=== PATIENT | female | born 1955 | race Caucasian/White ===

== ENCOUNTER 2020-03-04 09:25 | Outpatient (REF) | payer OTHER, SELFPAY ==
--- NOTE | 2020-03-04 09:26 | CT_ITS ---
EXAMINATION: CT CHEST SCREENING CLINICAL INFORMATION: Personal history of nicotine dependence. COMPARISON: None TECHNIQUE: Multidetector volumetric CT imaging of the chest is performed without contrast using low dose technique. Additional 2D coronal and sagittal reformatted images and axial 3D maximum intensity projection (MIP) images are generated on the CT workstation. This CT examination was performed using dose optimization techniques as appropriate, variously including the following: *Automated exposure control *Adjustment of mA and/or kV according to patient size (this includes techniques or standardized protocols for targeted exams where dose is matched to indication/reason for exam; i.e. extremities or head) *Use of iterative reconstruction technique DLP: 229 mGy-cm FINDINGS: LUNGS: There is loss of right lung volume from previous right upper lobectomy. There is right apical pleural thickening and scarring. Minimal left apical pleural thickening and scarring is seen. There is a left upper lobe 6 mm nodule or overlapping vascular structures image 59/6, stable to previous study. 4 mm nodule left lung apex posteriorly image 59/6 is stable. 5 mm nodule with medially extending linear stranding likely parenchymal thickening axial image 77/6, stable. 2 mm nodule left upper lobe anterior laterally image 100/6, stable. There are punctate calcified nodules in the left lung better visualized on 8 millimeters thick axial images and appears stable. There is a right lower lobe patchy consolidation which appears slightly more prominent than the previous study. There are no new nodules seen. MEDIASTINUM: The thyroid lobes are symmetrical and normal. The central trachea and the bronchi are widely patent. Heart size and the great vessels are normal caliber. No abnormal-sized mediastinal lymph nodes seen. There is no pericardial effusion. PLEURA: There is bilateral apical pleural thickening. No pleural effusion or calcification seen. AXILLA: No lymphadenopathy. UPPER ABDOMEN: Visualized liver, spleen, pancreas and bilateral adrenal glands are unremarkable. No radiopaque gallstone seen. A few scattered descending colon diverticula are visualized. OSSEOUS STRUCTURES: No lytic or sclerotic process seen. CT/CT lung screening IMPRESSION: Stable right postoperative changes following lobectomy. Slightly more prominent right lower lobe patchy consolidation in density and minimal increase in size. Multiple left lung nodules are stable as well. There are no new nodules. No abnormal mediastinal hilar lymph nodes. Lung RADS category 2 benign. RECOMMENDATION: Low-dose annual chest CT followup.
== END 2020-03-04 09:26 | disposition home or self-care (01) ==
LOC: HO.CT 09:25
PROVIDERS: PCP Physician Assistant; Visit Provider Physician Assistant Medical
DX: Z12.2 Encounter for screening for malignant neoplasm of respiratory organs (principal); Z87.891 Personal history of nicotine dependence
CPT/HCPCS: 71250

== ENCOUNTER → 2020-03-31 08:55 | Outpatient (BNVA) | payer OTHER, SELFPAY | PROVIDERS: PCP Physician Assistant; Visit Provider Hospitalist | DX: J44.9 Chronic obstructive pulmonary disease, unspecified (principal); J18.9 Pneumonia, unspecified organism; Z79.899 Other long term (current) drug therapy | CPT/HCPCS: 99212 ==

== ENCOUNTER 2020-04-10 08:07 | Outpatient (REF) | payer OTHER, SELFPAY ==
--- NOTE | 2020-04-10 17:39 | PFT_ITS ---
INDICATION: COPD. SPIROMETRY: The FEV1 to FVC of 62% with an FEV1 of 1.59 L which is 59% predicted and an FVC of 2.56 L which is 74% predicted. No significant response to bronchodilators noted. Maximum voluntary ventilation 78% predicted. LUNG VOLUMES: Total lung capacity 70% predicted. DIFFUSION CAPACITY: DLCO of 49% predicted. COMPARISONS: None. INTERPRETATION: There is an obstructive ventilatory defect consistent moderate COPD. No significant response to bronchodilators noted. Mild decrease in maximum voluntary ventilation secondary to likely deconditioning. The patient also has mild restrictive ventilatory defect likely from her surgeries in her parenchymal lung disease. In addition to that she has a moderate diffusion impairment. Clinical correlation warranted. MD PAULINE Lockett/HENRY / [id number]
== END 2020-04-10 08:08 | disposition home or self-care (01) ==
LOC: HO.RESP 08:07
PROVIDERS: PCP Physician Assistant; Visit Provider Hospitalist
DX: J44.9 Chronic obstructive pulmonary disease, unspecified (principal); J18.9 Pneumonia, unspecified organism
CPT/HCPCS: 94060; 94727; 94729

== ENCOUNTER 2020-04-16 10:25 | Day surgery (SDC) | payer OTHER, SELFPAY ==
[2020-04-10 14:02] VITALS: BMI 29.7
--- NOTE | 2020-04-15 10:46 | HO.ANESPROP2 ---
Documented by User: Bridgett Jenna 04/15/20 10:47 HPI - Anesthesia Eval Consult details Narrative: 64yo F for Bronchoscopy Fiberoptic s/p RUL resection PMFSH Past Medical History Medical History Cancer COPD (chronic obstructive pulmonary disease) Hx of radiation therapy Pneumonia Surgical History Surgical History History of lung surgery Social History Social History Smoking Status: Never smoker Advance Directives: Yes (unknown) Advance Directives Information Provided: No Meds Allergies Allergy/AdvReac Type Severity Reaction Status Date / Time No Known Allergies Allergy Verified 04/16/20 10:55 Home Medications Medication Instructions Recorded Confirmed Type albuterol sulfate 90 mcg/actuation 2 puff INHALATION Q4-6H PRN 03/31/20 04/16/20 History aerosol inhaler budesonide-formoterol HFA 160 2 puff INHALATION Q12H 03/31/20 04/16/20 History mcg-4.5 mcg/actuation aerosol inhaler escitalopram oxalate 5 mg tablet 5 mg PO DAILY 03/31/20 04/16/20 History ipratropium 0.5 mg-albuterol 3 mg 3 ml INHALATION Q6-8H PRN 03/31/20 04/16/20 History (2.5 mg base)/3 mL nebulization soln propranolol 20 mg tablet 20 mg PO BID 03/31/20 04/16/20 History quetiapine 50 mg tablet 50 mg PO BEDTIME 03/31/20 04/16/20 History tiotropium bromide 2.5 2 puff INHALATION DAILY 03/31/20 04/16/20 History mcg/actuation mist for inhalation eukifaodyry-kskekegpe-ntbnjsks 1 puff INHALATION DAILY 04/16/20 04/16/20 History [Trelegy Elliplory] Exam Exam Date and Time: April 15, 2020 1046 Height,Weight and Vital Signs: Height 5 ft 6 in Weight 83.461 kg Assessment and Plan Assessment Anesthesia Assessment: Chart Reviewed Documented by User: Delvin Ch MD 04/16/20 12:46 PMF Past Medical History Medical History Cancer COPD (chronic obstructive pulmonary disease) Hx of radiation therapy Pneumonia Surgical History Surgical History History of lung surgery Social History Social History Smoking Status: Never smoker Advance Directives: Yes (unknown) Advance Directives Information Provided: No Meds Allergies Allergy/AdvReac Type Severity Reaction Status Date / Time No Known Allergies Allergy Verified 04/16/20 10:55 Home Medications Medication Instructions Recorded Confirmed Type albuterol sulfate 90 mcg/actuation 2 puff INHALATION Q4-6H PRN 03/31/20 04/16/20 History aerosol inhaler budesonide-formoterol HFA 160 2 puff INHALATION Q12H 03/31/20 04/16/20 History mcg-4.5 mcg/actuation aerosol inhaler escitalopram oxalate 5 mg tablet 5 mg PO DAILY 03/31/20 04/16/20 History ipratropium 0.5 mg-albuterol 3 mg 3 ml INHALATION Q6-8H PRN 03/31/20 04/16/20 History (2.5 mg base)/3 mL nebulization soln propranolol 20 mg tablet 20 mg PO BID 03/31/20 04/16/20 History quetiapine 50 mg tablet 50 mg PO BEDTIME 03/31/20 04/16/20 History tiotropium bromide 2.5 2 puff INHALATION DAILY 03/31/20 04/16/20 History mcg/actuation mist for inhalation ojuhjurfugr-famiyoasg-ckwiippd 1 puff INHALATION DAILY 04/16/20 04/16/20 History [Trelegy Ellipta] Exam Airway Mallampati Class: II TM Dist: >3cm Neck ROM: Full Denture: Upper Assessment and Plan Assessment Anesthesia Assessment: Anesthesia Plan Discussed and Chart Reviewed Final Anesthetic Review NPO: Yes ASA Class: III Final Preanesthetic Review: No Changes in Pt Med Stat, Meds/Allgs Chart Reviewed and Consent Obtained/Reviewed Patient Risk: Intermediate Procedure Risk: Low Anesthetic Plan Anesthetic Plan: GA Disposition: Standard PACU
[2020-04-16 11:01] VITALS: BP 127/72; PULSE 68; RESP 18; TEMP 36.2; O2SAT 99
[2020-04-16] MEDS: Lactated Ringers 1,000 ML 100 ML IVCONT (11:01)
--- NOTE | 2020-04-16 11:23 | MHC.SHP ---
Pre-Procedural Eval Section A The patient is an INPATIENT: No Changes since office visit: Yes Cold of Flu in the past 2 weeks The History & Physical has been completed within 30 days and I have reviewed it.: Yes Section B Chief Complaint: pneumonitis Allergies: Allergies Allergy/AdvReac Type Severity Reaction Status Date / Time No Known Allergies Allergy Verified 04/16/20 10:55 Plan Patient has been examined and remains a candidate for the planned procedure
--- NOTE | 2020-04-16 11:55 | PC.NURSE ---
CALLED RESPIRATORY AT 1125. TROUBLE GETTING THROUGH EXTENSION 5815. EXT 5812 USED. RESPIRATORY NOT UP TO GIVE TREATMENT UNTIL 1152 AFTER A 2ND CALL TO 5812. MD AND ANESTHESIA MADE AWARE.
--- NOTE | 2020-04-16 12:38 | XR_ITS ---
EXAMINATION: XR CHEST CLINICAL INFORMATION: Bronchoscopy with right-sided biopsy COMPARISON: Previous chest CT most recent February 2020 TECHNIQUE: Frontal view of the chest was obtained. FINDINGS: There are postsurgical changes to the right hemithorax. There are surgical clips seen in the right suprahilar region. There is volume loss with shift of the central mediastinal structures to the right and elevation of the right hemidiaphragm. There is right apical pleural thickening or small pleural effusion. There is tenting of the right hemidiaphragm. The left lung is clear. There is no left pleural effusion. There is no pneumothorax. The cardiac and mediastinal contours are stable. No pneumomediastinum is seen. There are postoperative changes to the right ribs. There is curvature of the thoracic spine to the right. XR/XR chest 1V IMPRESSION: Stable postsurgical changes to the right hemithorax. No evidence for acute disease in the chest.
--- NOTE | 2020-04-16 12:39 | PM.OP ---
Brief Operative Note Date of Service: 04/16/20 Surgeon: Charly Graff MD Anesthesia: GETA Estimated blood loss (mL): 0 Pathology: other (RLL transbronchial biopsies, RLL brusing, RLL washings, CLAUDIA endobronchial biopsies) Condition: stable Disposition: same day
[2020-04-16 12:46] VITALS: BP 119/70; PULSE 73; RESP 20; O2SAT 99
[2020-04-16 13:01] VITALS: BP 115/81; PULSE 78; RESP 20; O2SAT 99
[2020-04-16 13:16] VITALS: BP 124/70; PULSE 71; RESP 18; O2SAT 97
[2020-04-16 13:31] VITALS: BP 125/69; PULSE 72; RESP 18; O2SAT 96
[2020-04-16 13:46] VITALS: BP 117/71; PULSE 67; RESP 18; O2SAT 97
--- NOTE | 2020-04-16 14:18 | HO.POSTANES ---
Post Anesthesia Evaluation Post Anesthesia Evaluation Vital Signs: Vital Signs Temp Pulse Resp BP Pulse Ox 04/16/20 13:46 97.1 F 67 18 117/71 97 04/16/20 13:31 72 18 125/69 96 04/16/20 13:16 71 18 124/70 97 04/16/20 13:01 78 20 115/81 99 04/16/20 12:46 73 20 119/70 99 04/16/20 11:01 97.1 F 68 18 127/72 99 Anesthesia: General (tiva) Mental Status: Awake Pain Control: Satisfactory Nausea/Vomiting: None Hydration: Adequate Anesthesia-Related Issues: No Anes. Related Issues
--- NOTE | 2020-04-16 14:52 | PC.NURSE ---
RESP REG NO ORAL STG NO COUGH, NO SOB. TAKING PO WITHOUT ISSUES
--- NOTE | 2020-04-16 21:34 | OP_ITS ---
SURGEON: Charly Graff MD PREOPERATIVE DIAGNOSIS: POSTOPERATIVE DIAGNOSIS: PROCEDURE PERFORMED: ESTIMATED BLOOD LOSS: COMPLICATIONS: None. Chest x-ray pending post biopsies. ANESTHESIA: General endotracheal anesthesia. ASSISTANTS: SPECIMENS: PREOPERATIVE DIAGNOSES: Pneumonia and abnormal right lower lobe airspace disease. POSTOPERATIVE DIAGNOSES: Pneumonia and abnormal right lower lobe airspace disease, in addition to bronchitis and also visible staple line in the right upper lobe stump. DESCRIPTION OF PROCEDURE: After the patient was adequately sedated and intubated, the flexible digital bronchoscope was inserted over the ET tube to the level of the main luisa. The main luisa was sharp, did have significant thick sticky mucoid secretions with some pigmentation. The pigmentation was made up of darker specks within the mucoid secretions. They were throughout. No evidence of any endobronchial lesions or masses, although in the left upper lobe, there was an area of what appeared to be slight discoloration or hypopigmentation of the mucosa. Otherwise, the patient did also have [place], which were grossly visible in the stump on the right upper lobe from her previous surgeries. Multiple [place] appreciated. No definitive fistula that I could visualize with the bronchoscopic inspection. The bronchoscope was navigated to the right lower lobe and a cytologic brush was introduced into the right lower lobe and sent to the appropriate location. Bronchial washings were also collected from the right lower lobe. Using biopsies forceps, the transbronchial biopsies were collected from the right lower lobe and 3 specimens collected and sent in formalin to pathology. Also, 2 attempts of the biopsy of the left upper lobe slightly abnormal endobronchial area likely due to either scarring or chronic inflammation, but attempts of endobronchial biopsy was done, difficult in the area because of the angle and the location in the airway. No significant bleeding. Iced saline was used with good hemostasis. Epinephrine was not administered, it was not necessary. The patient tolerated the procedure well. The total endoscopic time approximately 15 minutes. The patient tolerated the procedure well. Vital signs were stable. She was able to be extubated. INTERPRETATION: 1. Transbronchial biopsies of right lower lobe. 2. Cytologic brush into the right lower lobe. 3. Washings from the right lower lobe. 4. Endobronchial biopsies from the left upper lobe. Charly Graff MD MR/MODL / [id number]
== END 2020-04-16 13:20 | disposition home or self-care (01) ==
PROVIDERS: PCP Physician Assistant; Visit Provider Hospitalist
PROC: 0BJ08ZZ Inspection of Tracheobronchial Tree, Via Natural or Artificial Opening Endoscopic (ICD-10-PCS; CPT 31622; principal; 2020-04-16 12:00)
DX: J18.9 Pneumonia, unspecified organism (principal); J93.9 Pneumothorax, unspecified; J44.9 Chronic obstructive pulmonary disease, unspecified; J98.4 Other disorders of lung; R06.00 Dyspnea, unspecified; Z90.2 Acquired absence of lung [part of]; Z85.3 Personal history of malignant neoplasm of breast; Z92.3 Personal history of irradiation; Z79.51 Long term (current) use of inhaled steroids; Z79.899 Other long term (current) drug therapy
CPT/HCPCS: 31628; 31625; 31623; 71045; 87071; 87077; 87102; 87116; 87186; 87205; 88112; 88300; 88305; J0171; J2405; J3010

== ENCOUNTER → 2020-05-06 13:11 | Outpatient (BNVA) | payer OTHER, SELFPAY | PROVIDERS: PCP Physician Assistant; Visit Provider Hospitalist | DX: J44.9 Chronic obstructive pulmonary disease, unspecified (principal); Z87.01 Personal history of pneumonia (recurrent); Z90.2 Acquired absence of lung [part of] | CPT/HCPCS: 99212 ==

== ENCOUNTER → 2020-09-03 08:52 | Outpatient (BNVA) | payer OTHER, SELFPAY | PROVIDERS: PCP Physician Assistant; Visit Provider Hospitalist | DX: J41.8 Mixed simple and mucopurulent chronic bronchitis (principal); J15.1 Pneumonia due to Pseudomonas; J47.0 Bronchiectasis with acute lower respiratory infection; Z90.2 Acquired absence of lung [part of] | CPT/HCPCS: 99212 ==

== ENCOUNTER → 2020-10-15 08:35 | Outpatient (BNVA) | payer OTHER, SELFPAY | PROVIDERS: PCP Physician Assistant; Visit Provider Hospitalist | DX: J44.1 Chronic obstructive pulmonary disease with (acute) exacerbation (principal); J47.0 Bronchiectasis with acute lower respiratory infection; Z90.2 Acquired absence of lung [part of] | CPT/HCPCS: 99212 ==

== ENCOUNTER → 2021-01-27 08:54 | Outpatient (BNVA) | payer OTHER, SELFPAY | PROVIDERS: PCP Physician Assistant; Visit Provider Hospitalist | DX: J47.0 Bronchiectasis with acute lower respiratory infection (principal); J44.1 Chronic obstructive pulmonary disease with (acute) exacerbation; Z90.2 Acquired absence of lung [part of] | CPT/HCPCS: 99212 ==

== ENCOUNTER → 2021-07-28 08:39 | Outpatient (BNVA) | payer OTHER, SELFPAY | PROVIDERS: PCP Physician Assistant; Visit Provider Hospitalist | DX: J47.0 Bronchiectasis with acute lower respiratory infection (principal); Z90.2 Acquired absence of lung [part of] | CPT/HCPCS: 99212 ==

== ENCOUNTER → 2022-03-26 08:51 | Outpatient (BNVA) | payer OTHER, SELFPAY | PROVIDERS: PCP Physician Assistant; Visit Provider Hospitalist | DX: J44.1 Chronic obstructive pulmonary disease with (acute) exacerbation (principal); J47.0 Bronchiectasis with acute lower respiratory infection; Z90.2 Acquired absence of lung [part of] | CPT/HCPCS: 99212 ==

== ENCOUNTER 2022-04-22 10:13 | Outpatient (REF) | payer OTHER, SELFPAY ==
--- NOTE | ~2022-04-22 | CT_ITS ---
EXAMINATION: CT CHEST SCREENING CLINICAL INFORMATION: Personal history of nicotine dependence. COMPARISON: CT chest 03/04/2020. TECHNIQUE: Multidetector volumetric CT imaging of the chest is performed without contrast using low-dose technique. Additional 2D coronal and sagittal reformatted images and axial 3D maximum intensity projection (MIP) images are generated on the CT workstation. This CT examination was performed using dose optimization techniques as appropriate, variously including the following: *Automated exposure control *Adjustment of mA and/or kV according to patient size (this includes techniques or standardized protocols for targeted exams where dose is matched to indication/reason for exam; i.e. extremities or head) *Use of iterative reconstruction technique DLP: 62 mGy-cm FINDINGS: LUNGS: There is loss of right lung volume from right upper lobectomy. There is right apical pleural thickening and parenchymal scarring. Mild left apical pleural thickening and parenchymal scarring are noted as well. There is 6 mm apical density (axial image 11/5) slightly more prominent than in the previous study. A spiculated 6 mm nodule noted in the left lung apex on axial image 68/7, is stable. The previous pleural-based 4 mm nodule in the left lung apex posteriorly (axial image 71/7) is stable. Punctate calcified granulomas are seen throughout the lung. Reticular interstitial thickening and patchy parenchymal density are seen in the right lung base medially which appear stable. MEDIASTINUM: Thyroid lobes are symmetrical and normal. The central trachea is deviated to right due to mediastinal shift but otherwise patent. The bronchi are patent. No abnormal-sized mediastinal lymph nodes are seen. The heart size and the great vessels are normal. No pericardial effusion is seen. CORONARY ARTERY CALCIFICATION: None visualized on this study. PLEURA: There is no pleural effusion. No pleural mass or thickening. AXILLA: Small shotty lymph nodes are seen in the bilateral axilla. UPPER ABDOMEN: Visualized liver, spleen, pancreas and bilateral adrenal glands are unremarkable. OSSEOUS STRUCTURES: No aggressive lytic or sclerotic process is seen. CT/CT lung screening IMPRESSION: Stable postoperative changes right upper lobe. Bilateral apical pleural thickening and parenchymal scarring are stable. There are multiple right upper lobe lung nodules which are stable. Patchy opacity and reticular interstitial thickening in the right lower lobe as well as small calcified lung nodules are stable. There are no new lung nodules or abnormal mediastinal adenopathy. ASSESSMENT: Lung-RADS category 2: Benign RECOMMENDATION: Low-dose annual CT chest
== END 2022-04-22 10:14 | disposition home or self-care (01) ==
LOC: HO.CT 10:13
PROVIDERS: PCP Physician Assistant; Visit Provider Physician Assistant Medical
DX: Z12.2 Encounter for screening for malignant neoplasm of respiratory organs (principal); Z87.891 Personal history of nicotine dependence
CPT/HCPCS: 71271

== ENCOUNTER → 2022-09-21 09:04 | Outpatient (BNVA) | payer OTHER, SELFPAY | PROVIDERS: PCP Physician Assistant; Visit Provider Hospitalist | DX: J44.1 Chronic obstructive pulmonary disease with (acute) exacerbation (principal); J47.0 Bronchiectasis with acute lower respiratory infection; Z90.2 Acquired absence of lung [part of] | CPT/HCPCS: 99212 ==

== ENCOUNTER → 2022-10-06 07:42 | Outpatient (REF) | payer OTHER, SELFPAY ==
--- NOTE | 2022-10-06 07:46 | ECG_ITS ---
Test Reason : copd Blood Pressure : / mmHG Vent. Rate : 068 BPM Atrial Rate : 068 BPM P-R Int : 144 ms QRS Dur : 076 ms QT Int : 428 ms P-R-T Axes : 073 068 062 degrees QTc Int : 455 ms Normal sinus rhythm Right atrial enlargement Borderline ECG No previous ECGs available Referred By: Charly Graff Electronically Signed By:YASH HOWE MD
== END ==
LOC: HO.CARD 07:42
PROVIDERS: PCP Physician Assistant; Visit Provider Hospitalist
DX: J44.9 Chronic obstructive pulmonary disease, unspecified (principal)
CPT/HCPCS: 93005

== ENCOUNTER 2023-01-25 09:23 | Outpatient (AMB) | payer OTHER, SELFPAY ==
[2023-01-25 09:30] VITALS: BP 110/72; PULSE 73; O2SAT 96; BMI 24.9
--- NOTE | 2023-01-25 09:30 | A.OFFVIS_ITS ---
Intake Vital Signs 01/25/23 09:30 Height 5 ft 6 in Weight 154 lb 5.177 oz BMI 24.9 BP 110/72 Blood Pressure Location Lt brachial Position Sitting Pulse 73 Pulse Source Pulse Oximeter Pulse Oximetry (%) 96 Oxygen Delivery Method Room Air Intake Visit Reasons: COPD Monitoring And Evaluation Advisor Required: No Allergies No Known Allergies Allergy (Verified 01/25/23 09:33) HPI HPI Comments History of Present Illness Details Patient is a 67 y/o woman with a history of known COPD in addition to pneumothorax status post lung resection of the right upper lobe area. She also had breast cancer of the right breast s/p xrt. She has been participating with pulmonary rehabilitation for some time. She did very well. Now that she has completed the course she started demonstrating increasing shortness of breath and cough. She has a croupy cough. Moderate severity. She is getting more short of breath. She has been having to use a nebulizer at times. She has been using the Spiriva Respimat with very good effect. However, her insurance Center letter that they were going to be covering and she is very concerned about this since she has failed multiple inhalers including all the powder inhalers October her throat. Will try sending Spiriva again since his so effective in addition to additional inhaler therapy. She did have an x-ray back in April 2018 demonstrating some postoperative changes lung volume and other changes. At this point she should really get a CT scan to better address her her symptoms and her abnormal chest x-ray. Today the patient is here for pulmonary follow-up visit. She continues to have a productive cough with wheezing. Moderate severity. She hasn't really felt any better from the last visit. She did have a CT scan of the chest which we personally reviewed demonstrating her postoperative changes in addition to her radiation changes from her right-sided breast cancer. 07/28/2021 the patient is here for a pulmonary follow-up visit. She continues to do well on the inhaled tobramycin. This is her off month and she will restart in August. She also has been using nebulized therapy in using her flutter valve. However she has been able to expectorate very well. She is not responding well to the Acapella valve. Therefore, based on the fact that she has bronchiectasis and also history of Pseudomonas infections the patient will benefit from a percussion vest. Will request percussion vest to be started for aggressive CPT and mucus clearance. In the meantime she is going to continue with the DuoNeb and also the budesonide. The inhaled tobramycin she will continue 28 days on and 28 days off. She will have her CT scan of the chest per the lung cancer screening program sometime in the fall and will follow-up with her after that. 03/26/2022 the patient is here for pulmonary follow-up visit. The patient has been complaining of worsening chest congestion since yesterday. She start using her nebulizer more often. On further questioning she does not always use her medications as prescribed. We did talk about the importance of maintenance therapies. We also talked about the inhaled tobramycin were is prophylactically treating her Pseudomonas. However, she needs to use it as prescribed. Today on examination she does have increased wheezing or rhonchi. She is going to start using her medications appropriately. If the patient is not better she is going to start prednisone. I will make sure to send to the pharmacy. 09/21/2022 the patient is here for a pulmonary follow-up visit. She does complaint of increased chest congestion. Moderate severity. Also with increased wheezing. She has been using her respiratory medications as prescribed. She has also been using the inhaled tobramycin. This has been very helpful for her. Although she needs to be more adherent to the therapy. The patient is following closely with the lung cancer screening program. Her last CT scan demonstrated stable pulmonary nodules and stable postoperative changes. Will go ahead and start azithromycin at this time she should continue with the inhaled tobramycin. She also knows to use the bronchodilation prior to the inhaled tobramycin to avoid bronchospasms. 01/25/2023 the patient is here for a pulmonary follow-up visit. The patient is doing a lot better. She is responding well to the azithromycin 3 times a week. She also continues on the inhaled tobramycin 28 days on and 28 days off for the Pseudomonas and also the bronchiectasis. She is using the percussion vest for CPT after her nebulized therapy. She is also lot better she feels a lo t better. As it is already she did get her vaccine for RSV it will be getting the flu 1 soon. In addition to that she is participating in the lung cancer screening program and her next CT scan is going to be April 2023. Patient will continue current respiratory therapy will follow-up in 6 months or sooner if any new issues arise. [facility] Medical History (Updated 10/15/20 @ 22:29 by Charly Graff MD) Bronchiectasis Hx of radiation therapy Cancer COPD (chronic obstructive pulmonary disease) Pneumonia Surgical History (Updated 05/06/20 @ 21:41 by Charly Graff MD) S/P lobectomy of lung History of lung surgery Social History (Updated 10/15/20 @ 08:47 by Kitty Burleson Min) Patient Tobacco Use Status: Former Tobacco user Tobacco use type: Cigarette Years Smoked: 30 years Review of Systems Const Denies night sweats ENT Denies change in voice, Denies lip swelling, Denies mouth pain, Reports nasal congestion, Reports nasal discharge and Denies tongue swelling Card Denies chest pain and Reports dyspnea on exertion Resp Denies change in phlegm color, Reports chest congestion, Reports cough, Denies hemoptysis, Denies excessive phlegm production, Reports dyspnea on exertion and Reports wheezing GI Denies abdominal pain Musc Denies no additional complaints Neuro Denies Neuro-related abnormal movements Psych Denies no additional complaints Nathan/Lymph Denies easy bleeding and Denies lymphadenopathy Aller/Immun Denies lip swelling, Denies tongue swelling and Reports wheezing Physical Exam Vital Signs: Last Vital Signs Pulse 73 01/25/23 09:30 BP 110/72 01/25/23 09:30 Pulse Ox 96 01/25/23 09:30 Oxygen Delivery Method Room Air 01/25/23 09:30 BMI result Body Mass Index 24.9 Const General: alert Neck Neck: Yes normal visual inspection, Yes full ROM and Yes no lymphadenopathy Chest Chest palpation & inspection: normal inspection of the chest Resp Auscultation: no rhonchi, no wheezes and diminished lung sounds Cardio Rate: regular rate Rhythm: regular rhythm Heart sounds: S1 normal heart sound present and S2 normal heart sound present GI Palpation (GI): Soft to palpation and nontender Auscultation: normal bowel sounds Skin General skin exam: rashes and/or lesions noted Assessment & Plan Assessment & Plan (1) COPD (chronic obstructive pulmonary disease): Code(s): J44.9 - Chronic obstructive pulmonary disease, unspecified Qualifiers: COPD type: COPD with acute exacerbation Qualified Code(s): J44.1 - Chronic obstructive pulmonary disease with (acute) exacerbation (2) Bronchiectasis: Code(s): J47.9 - Bronchiectasis, uncomplicated Qualifiers: Bronchiectasis type: with acute lower respiratory infection Qualified Code(s): J47.0 - Bronchiectasis with acute lower respiratory infection (3) S/P lobectomy of lung: Comment: staple line visible from bronchoscopy due to regression. No evidence of bronchopleural fistula Code(s): Z90.2 - Acquired absence of lung [part of] Plan Continue Duoneb/Budesonide daily with CPT with percussion vest Dev BID 28 days on 28 days off continue Azithromycin MWF EKG CT chest through LDCT program. F/U 6 months Orders: Orders ECG 12 lead EKG Today J44.9 - Chronic obstructive pulmonary disease, unspecified Medications: Changed From azithromycin Take 1 tablet on Tuesday/Tuesday/Tuesday 250 mg PO 3XW 28 days 12 tabs 6RF K21.9 - Gastro-esophageal reflux disease without esophagitis To azithromycin Take 1 tablet on Tuesday/Tuesday/Tuesday 250 mg PO 3XW 90 days 39 tabs 3RF K21.9 - Gastro-esophageal reflux disease without esophagitis Coding Level of Care Code Est Pt Level 4 (35171) Diagnoses Chronic obstructive pulmonary disease with acute exacerbation J44.1 COPD type: COPD with acute exacerbation Bronchiectasis with acute lower respiratory infection J47.0 Bronchiectasis type: with acute lower respiratory infection S/P lobectomy of lung Z90.2 Time Spent (min) 17
== END 2023-01-25 09:44 | disposition home or self-care (01) ==
PROVIDERS: PCP Physician Assistant; Visit Provider Hospitalist
DX: J44.1 Chronic obstructive pulmonary disease with (acute) exacerbation (principal); Z90.2 Acquired absence of lung [part of]
CPT/HCPCS: 99214

== ENCOUNTER → 2023-01-25 09:23 | Outpatient (REF) | payer OTHER, SELFPAY ==
--- NOTE | 2023-01-25 09:54 | ECG_ITS ---
Test Reason : copd Blood Pressure : / mmHG Vent. Rate : 059 BPM Atrial Rate : 059 BPM P-R Int : 158 ms QRS Dur : 068 ms QT Int : 410 ms P-R-T Axes : 054 058 060 degrees QTc Int : 405 ms Sinus bradycardia Otherwise normal ECG When compared with ECG of 06-OCT-2022 07:49, Heart rate has decreased Referred By: Charly Graff Electronically Signed By:ESPINOZA DEL VALLE
== END ==
LOC: HO.CARD 09:23
PROVIDERS: PCP Physician Assistant; Visit Provider Hospitalist
DX: R00.1 Bradycardia, unspecified (principal); J15.1 Pneumonia due to Pseudomonas; J41.8 Mixed simple and mucopurulent chronic bronchitis
CPT/HCPCS: 93005; 99212

== ENCOUNTER 2023-04-27 11:06 | Outpatient (REF) | payer OTHER, SELFPAY | END 2023-04-27 11:07 | disposition home or self-care (01) | LOC: HO.CT 11:06 | PROVIDERS: PCP Physician Assistant; Visit Provider Physician Assistant Medical | DX: Z12.2 Encounter for screening for malignant neoplasm of respiratory organs (principal); F17.210 Nicotine dependence, cigarettes, uncomplicated | CPT/HCPCS: 71271 ==

== ENCOUNTER 2023-09-19 14:23 | Outpatient (REF) | payer OTHER, SELFPAY ==
--- NOTE | 2023-09-19 15:03 | ECG_ITS ---
Test Reason : COPD Blood Pressure : / mmHG Vent. Rate : 065 BPM Atrial Rate : 065 BPM P-R Int : 156 ms QRS Dur : 070 ms QT Int : 404 ms P-R-T Axes : 058 054 056 degrees QTc Int : 420 ms Normal sinus rhythm Normal ECG When compared with ECG of 25-JAN-2023 09:52, No significant change was found Referred By: Charly Graff Electronically Signed By:YASH HOWE MD
[2023-09-19 15:20] LABS: MANUAL DIFF FLAG NO
[2023-09-19 15:24] LABS: Venous Blood Gas Refer to POC result
[2023-09-19 15:28] LABS: VBG Base Excess 5.7 mmol/L; VBG HCO3 31 mmol/L (22-26); VBG pCO2 47 mmHg; VBG pH 7.42 (7.32-7.43); VBG pO2 29 mmHg
[2023-09-19 16:10] LABS: Anion Gap 13 (12-20); Blood Urea Nitrogen 12 mg/dL (9-16); Calcium 9.8 mg/dL (8.4-10.2); Carbon Dioxide 28 mmol/L (22-29); Chloride 107 mmol/L (96-108); Estimated Glomerular Filt Rate 59; Glucose Random 82 mg/dL (60-115); Potassium 4.5 mmol/L (3.3-5.1); Sodium 143 mmol/L (135-145)
[2023-09-19 16:17] LABS: Troponin-I High Sensitivity < 2.7 ng/L (<3.5-17.0)
[2023-09-19 16:26] LABS: Basophils Percent Auto 0.9 % (0-2); Eosinophils Absolute Auto 0.1 X10*3/uL (0.0-0.4); Eosinophils Percent Auto 3.9 % (0-4); Hematocrit 39.1 % (37.0-47.0); Hemoglobin 12.3 g/dl (12.0-16.0); Imm Gran Abs Auto 0.04 X10*3/uL (0.00-0.03); Imm Gran Pct Auto 1.2 % (0.0-0.4); Lymphocytes Absolute Auto 1.2 X10*3/uL (1.2-4.9); Mean Corpuscular HGB Conc 31.5 g/dl (31.0-35.0); Mean Corpuscular Hemoglobin 28.1 pg (27.0-33.0); Mean Corpuscular Volume 89.5 fL (80.0-98.0); Mean Platelet Volume 10.4 fL (9.4-12.3); Monocytes Absolute Auto 0.3 X10*3/uL (0.1-1.2); Monocytes Percent Auto 7.5 % (2-11); Neutrophils Absolute Auto 1.6 x10*3/uL (2.0-8.3); Neutrophils Percent Auto 49.5 % (45-73); Platelet Count 140 X10*3/uL (160-400); Red Blood Count 4.37 X10*6/uL (4.20-5.50); Red Cell Distribution Width 12.7 % (11.0-16.0); White Blood Count 3.3 X10*3/uL (4.8-10.8)
[2023-09-19 19:48] LABS: Erythrocyte Sedimentation Rate 12 MM/HR (0-20)
[2023-09-20 16:09] LABS: VBG Base Excess 5.7 mmol/L; VBG HCO3 31 mmol/L (22-26); VBG pCO2 47 mmHg; VBG pH 7.42 (7.32-7.43); VBG pO2 29 mmHg
[2023-09-20 17:19] LABS: Alpha 1 Anti-trypsin 102 mg/dL (83-199)
== END 2023-09-19 14:24 | disposition home or self-care (01) ==
LOC: HO.LAB 14:23
PROVIDERS: PCP Physician Assistant; Visit Provider Hospitalist
DX: J47.0 Bronchiectasis with acute lower respiratory infection (principal); R06.00 Dyspnea, unspecified; J44.1 Chronic obstructive pulmonary disease with (acute) exacerbation
CPT/HCPCS: 36415; 80048; 82103; 82803; 84484; 85025; 85652; 93005; 94618; 99212

== ENCOUNTER 2023-09-19 14:23 | Outpatient (AMB) | payer OTHER, SELFPAY ==
[2023-09-19 14:36] VITALS: PULSE 73; O2SAT 94; BMI 25.8
--- NOTE | 2023-09-19 14:36 | MHC.OFFVIS ---
Vital Signs 09/19/23 14:36 Height 5 ft 6 in Weight 160 lb BMI 25.8 Pulse 73 Pulse Source Pulse Oximeter Pulse Oximetry (%) 94 Oxygen Delivery Method Room Air Intake Visit Reasons: COPD Tube Worker Required: No Allergies No Known Allergies Allergy (Verified 09/19/23 14:38) HPI Comments Details: Patient is a 68 y/o woman with a history of known COPD in addition to pneumothorax status post lung resection of the right upper lobe area. She also had breast cancer of the right breast s/p xrt. She has been participating with pulmonary rehabilitation for some time. She did very well. Now that she has completed the course she started demonstrating increasing shortness of breath and cough. She has a croupy cough. Moderate severity. She is getting more short of breath. She has been having to use a nebulizer at times. She has been using the Spiriva Respimat with very good effect. However, her insurance Center letter that they were going to be covering and she is very concerned about this since she has failed multiple inhalers including all the powder inhalers October her throat. Will try sending Spiriva again since his so effective in addition to additional inhaler therapy. She did have an x-ray back in April 2018 demonstrating some postoperative changes lung volume and other changes. At this point she should really get a CT scan to better address her her symptoms and her abnormal chest x-ray. Today the patient is here for pulmonary follow-up visit. She continues to have a productive cough with wheezing. Moderate severity. She hasn't really felt any better from the last visit. She did have a CT scan of the chest which we personally reviewed demonstrating her postoperative changes in addition to her radiation changes from her right-sided breast cancer. 07/28/2021 the patient is here for a pulmonary follow-up visit. She continues to do well on the inhaled tobramycin. This is her off month and she will restart in August. She also has been using nebulized therapy in using her flutter valve. However she has been able to expectorate very well. She is not responding well to the Acapella valve. Therefore, based on the fact that she has bronchiectasis and also history of Pseudomonas infections the patient will benefit from a percussion vest. Will request percussion vest to be started for aggressive CPT and mucus clearance. In the meantime she is going to continue with the DuoNeb and also the budesonide. The inhaled tobramycin she will continue 28 days on and 28 days off. She will have her CT scan of the chest per the lung cancer screening program sometime in the fall and will follow-up with her after that. 03/26/2022 the patient is here for pulmonary follow-up visit. The patient has been complaining of worsening chest congestion since yesterday. She start using her nebulizer more often. On further questioning she does not always use her medications as prescribed. We did talk about the importance of maintenance therapies. We also talked about the inhaled tobramycin were is prophylactically treating her Pseudomonas. However, she needs to use it as prescribed. Today on examination she does have increased wheezing or rhonchi. She is going to start using her medications appropriately. If the patient is not better she is going to start prednisone. I will make sure to send to the pharmacy. 09/21/2022 the patient is here for a pulmonary follow-up visit. She does complaint of increased chest congestion. Moderate severity. Also with increased wheezing. She has been using her respiratory medications as prescribed. She has also been using the inhaled tobramycin. This has been very helpful for her. Although she needs to be more adherent to the therapy. The patient is following closely with the lung cancer screening program. Her last CT scan demonstrated stable pulmonary nodules and stable postoperative changes. Will go ahead and start azithromycin at this time she should continue with the inhaled tobramycin. She also knows to use the bronchodilation prior to the inhaled tobramycin to avoid bronchospasms. 01/25/2023 the patient is here for a pulmonary follow-up visit. The patient is doing a lot better. She is responding well to the azithromycin 3 times a week. She also continues on the inhaled tobramycin 28 days on and 28 days off for the Pseudomonas and also the bronchiectasis. She is using the percussion vest for CPT after her nebulized therapy. She is also lot better she feels a lot better. As it is already she did get her vaccine for RSV it will be getting the flu 1 soon. In addition to that she is participating in the lung cancer screening program and her next CT scan is going to be April 2023. Patient will continue current respiratory therapy will follow-up in 6 months or sooner if any new issues arise. 09/19/2023 the patient is here for a pulmonary follow-up visit. The patient is doing fairly well although she does complaint of dyspnea on exertion. Moderate severity even with minimal activity. She has been struggling with her breathing. Unfortunately she still smoking at times primarily marijuana. Explained to her that with the lung condition she exposing herself to any smoke or any fumes or toxins that could be further hindering her lung capacity. The patient has been using her respiratory therapy with good effect in the azithromycin Tuesday macrolide therapy has been very effective for her. She knows to get an EKG. In the meantime we did take it for 6 minute walk test. The patient did desaturate down to about 91% in her heart rate did increase over 120 beats per minute with the activity. She did walk about 300 ft. Explained to the patient that although she does have significant pulmonary disease she may have a cardiopulmonary component. Therefore I will order an EKG and the patient should also have a stress test. We will also request blood work at this time including a venous gas. [facility] Medical History (Updated 09/19/23 @ 21:07 by Charly Graff MD) Dyspnea Bronchiectasis Hx of radiation therapy Cancer COPD (chronic obstructive pulmonary disease) Pneumonia Surgical History (Updated 05/06/20 @ 21:41 by Charly Graff MD) S/P lobectomy of lung History of lung surgery Social History (Updated 10/15/20 @ 08:47 by Kitty Burleson Min) Patient Tobacco Use Status: Former Tobacco user Tobacco use type: Cigarette Years Smoked: 30 years Review of Systems Const Denies night sweats ENT Denies change in voice, Denies lip swelling, Denies mouth pain, Reports nasal congestion, Reports nasal discharge and Denies tongue swelling Card Denies chest pain, Reports palpitations and Reports dyspnea on exertion Resp Denies change in phlegm color, Denies chest congestion, Reports cough, Denies hemoptysis, Denies excessive phlegm production, Reports dyspnea on exertion and Reports wheezing GI Denies abdominal pain Musc Denies no additional complaints Neuro Denies Neuro-related abnormal movements Psych Denies no additional complaints Endo Reports palpitations Nathan/Lymph Denies easy bleeding and Denies lymphadenopathy Aller/Immun Denies lip swelling, Denies tongue swelling and Reports wheezing Physical Exam Vital Signs: Last Vital Signs Pulse 73 09/19/23 14:36 Pulse Ox 94 09/19/23 14:36 Oxygen Delivery Method Room Air 09/19/23 14:36 BMI result Body Mass Index 25.8 Const General: alert Neck Neck: Yes normal visual inspection, Yes full ROM and Yes no lymphadenopathy Chest Chest palpation & inspection: normal inspection of the chest Resp Effort & Inspection: prolonged expiratory phase Auscultation: no rhonchi, no wheezes and diminished lung sounds Cardio Rate: regular rate Rhythm: regular rhythm Heart sounds: S1 normal heart sound present and S2 normal heart sound present GI Palpation (GI): Soft to palpation and nontender Auscultation: normal bowel sounds Skin General skin exam: rashes and/or lesions noted Office Procedures 6 Minute Walk Time:: 21:08 SPO2 % at rest: 95 Pulse at rest: 90 SPO2 % during excercise: 91 Pulse during excercise: 120 Distance in yards walked: 300 Archie Score: 8 [id number] - 6 Minute Walk Assessment & Plan Assessment & Plan (1) COPD (chronic obstructive pulmonary disease): Code(s): J44.9 - Chronic obstructive pulmonary disease, unspecified Category: Medical Qualifiers: COPD type: COPD with acute exacerbation Qualified Code(s): J44.1 - Chronic obstructive pulmonary disease with (acute) exacerbation (2) Bronchiectasis: Code(s): J47.9 - Bronchiectasis, uncomplicated Category: Medical Qualifiers: Bronchiectasis type: with acute lower respiratory infection Qualified Code(s): J47.0 - Bronchiectasis with acute lower respiratory infection (3) S/P lobectomy of lung: Comment: staple line visible from bronchoscopy due to regression. No evidence of bronchopleural fistula Code(s): Z90.2 - Acquired absence of lung [part of] Category: Surgical (4) Dyspnea: Code(s): R06.00 - Dyspnea, unspecified Category: Medical Qualifiers: Dyspnea type: dyspnea on exertion Qualified Code(s): R06.09 - Other forms of dyspnea Plan Continue Duoneb/Budesonide daily with CPT with percussion vest Dev BID 28 days on 28 days off continue Azithromycin MWF EKG CT chest through LDCT program. Stress ECHO Bloodwork/venous gas F/U 4- 6 months Orders: Orders ECG 12 lead EKG Today J44.9 - Chronic obstructive pulmonary disease, unspecified Complete Blood Count Auto Diff Today J47.0 - Bronchiectasis with acute lower respiratory infection, R06.00 - Dyspnea, unspecified Troponin-I High Sensitivity Today J47.0 - Bronchiectasis with acute lower respiratory infection, R06.00 - Dyspnea, unspecified Basic Metabolic Panel Today J47.0 - Bronchiectasis with acute lower respiratory infection, R06.00 - Dyspnea, unspecified Alpha 1 Anti-trypsin Today J47.0 - Bronchiectasis with acute lower respiratory infection, R06.00 - Dyspnea, unspecified Erythrocyte Sedimentation Rate Today J47.0 - Bronchiectasis with acute lower respiratory infection, R06.00 - Dyspnea, unspecified CA echo stress exercise Today R06.00 - Dyspnea, unspecified, R07.9 - Chest pain, unspecified Venous Blood Gas Today J44.1 - Chronic obstructive pulmonary disease with (acute) exacerbation Medications: Refilled azithromycin Take 1 tablet on Tuesday/Tuesday/Tuesday 250 mg PO 3XW 39 tabs 3RF 90 days K21.9 - Gastro-esophageal reflux disease without esophagitis Coding Level of Care Code Est Pt Level 4 (69287) Diagnoses Chronic obstructive pulmonary disease with acute exacerbation J44.1 COPD type: COPD with acute exacerbation Bronchiectasis with acute lower respiratory infection J47.0 Bronchiectasis type: with acute lower respiratory infection S/P lobectomy of lung Z90.2 Dyspnea on exertion R06.09 Dyspnea type: dyspnea on exertion CPT Codes Coding ([id number]) Time Spent (min) 17
[2023-09-19 21:06] VITALS: PULSE 90; O2SAT 95
== END 2023-09-19 14:59 | disposition home or self-care (01) ==
PROVIDERS: PCP Physician Assistant; Visit Provider Hospitalist
DX: J44.1 Chronic obstructive pulmonary disease with (acute) exacerbation (principal); J47.0 Bronchiectasis with acute lower respiratory infection; Z90.2 Acquired absence of lung [part of]; R06.09 Other forms of dyspnea
CPT/HCPCS: 94618; 99214

== ENCOUNTER → 2023-09-19 15:03 | Outpatient (BNV) | payer OTHER, SELFPAY | PROVIDERS: PCP Physician Assistant; Visit Provider Internal Medicine Cardiovascular Disease | DX: J44.1 Chronic obstructive pulmonary disease with (acute) exacerbation (principal) | CPT/HCPCS: 93010 ==

== ENCOUNTER → 2023-10-31 11:09 | Outpatient (REF) | payer OTHER, SELFPAY ==
--- NOTE | 2023-10-31 11:13 | CA_ITS ---
Acquisition Time: 2023-10-31 11:08:04 Total Exercise Time: 00:04:56 Test Indications: Dyspnea Medications: PROPRANOLOL ESCITALOPRAM PREDNISONE Protocol: FREDRICK Max HR: 134 BPM 87% of Pred: 153 BPM Max BP: 150/084 mmHG Max Work Load: 5.5 METS Exercise stress test exercise 4 min 56 secofn Fredrick protocol (stage 2 manually increased) achieving approximately 76%, with mdoerate to severe SOB, noc hest pain, with isolated PACs, isolated PVCs, Ventricular bigeminy (pt reported mild flutter feeling), without EKG changes at achieved workload. Breathing returned to baseline with rest. Echo images obtained at rest and immediately post exercise. Definity contrast used. Test reviewed with Dr. Conn Referred By: Charly Graff Overread By: Naz Tom
== END ==
LOC: HO.CARD 11:09
PROVIDERS: PCP Physician Assistant; Visit Provider Hospitalist
DX: R07.9 Chest pain, unspecified (principal); R06.00 Dyspnea, unspecified
CPT/HCPCS: 93350; Q9957

== ENCOUNTER → 2023-10-31 11:13 | Outpatient (BNV) | payer OTHER, SELFPAY | PROVIDERS: PCP Physician Assistant; Visit Provider Nurse Practitioner | DX: I51.89 Other ill-defined heart diseases (principal); R06.02 Shortness of breath; I49.1 Atrial premature depolarization; I49.3 Ventricular premature depolarization | CPT/HCPCS: 93016; 93018; 93350; 93352 ==

== ENCOUNTER 2023-12-26 08:30 | Outpatient (AMB) | payer OTHER, SELFPAY ==
--- NOTE | 2023-12-26 08:38 | MHC.OFFVIS ---
Vital Signs 12/26/23 08:40 Height 5 ft 6 in Weight 165 lb BMI 26.6 BP 118/60 Blood Pressure Location Lt brachial Position Sitting Pulse 63 Pulse Source Pulse Oximeter Pulse Oximetry (%) 96 Oxygen Delivery Method Room Air Intake Visit Reasons: COPD Cyber Policy And Strategy Planner Required: No Allergies No Known Allergies Allergy (Verified 12/26/23 08:42) HPI Comments Details: Patient is a 68 y/o woman with a history of known COPD in addition to pneumothorax status post lung resection of the right upper lobe area. She also had breast cancer of the right breast s/p xrt. She has been participating with pulmonary rehabilitation for some time. She did very well. Now that she has completed the course she started demonstrating increasing shortness of breath and cough. She has a croupy cough. Moderate severity. She is getting more short of breath. She has been having to use a nebulizer at times. She has been using the Spiriva Respimat with very good effect. However, her insurance Center letter that they were going to be covering and she is very concerned about this since she has failed multiple inhalers including all the powder inhalers October her throat. Will try sending Spiriva again since his so effective in addition to additional inhaler therapy. She did have an x-ray back in April 2018 demonstrating some postoperative changes lung volume and other changes. At this point she should really get a CT scan to better address her her symptoms and her abnormal chest x-ray. Today the patient is here for pulmonary follow-up visit. She continues to have a productive cough with wheezing. Moderate severity. She hasn't really felt any better from the last visit. She did have a CT scan of the chest which we personally reviewed demonstrating her postoperative changes in addition to her radiation changes from her right-sided breast cancer. . 09/19/2023 the patient is here for a pulmonary follow-up visit. The patient is doing fairly well although she does complaint of dyspnea on exertion. Moderate severity even with minimal activity. She has been struggling with her breathing. Unfortunately she still smoking at times primarily marijuana. Explained to her that with the lung condition she exposing herself to any smoke or any fumes or toxins that could be further hindering her lung capacity. The patient has been using her respiratory therapy with good effect in the azithromycin Tuesday macrolide therapy has been very effective for her. She knows to get an EKG. In the meantime we did take it for 6 minute walk test. The patient did desaturate down to about 91% in her heart rate did increase over 120 beats per minute with the activity. She did walk about 300 ft. Explained to the patient that although she does have significant pulmonary disease she may have a cardiopulmonary component. Therefore I will order an EKG and the patient should also have a stress test. We will also request blood work at this time including a venous gas. 12/26/2023 the patient is here for a pulmonary follow-up visit. Overall she is doing well. Still has dyspnea on exertion. [id number] severity. But more stable. She is no longer using the inhaled tobramycin she does not feel significant congestion. She has not gotten a call either she states. At this point will hold off additional therapies especially she is doing well. She is tolerating the macrolide suppression therapy and we did look at an EKG which was stable. She will continue with the current respiratory therapy. Will plan to repeat her PFTs in 4-6 months and will follow-up after that. The patient may be a good candidate for pulmonary rehabilitation will discuss that further after her PFTs. [facility] Medical History (Updated 09/19/23 @ 21:07 by Charly Graff MD) Dyspnea Bronchiectasis Hx of radiation therapy Cancer COPD (chronic obstructive pulmonary disease) Pneumonia Surgical History (Updated 05/06/20 @ 21:41 by Charly Graff MD) S/P lobectomy of lung History of lung surgery Social History (Updated 10/15/20 @ 08:47 by Kitty Burleson Min) Patient Tobacco Use Status: Former Tobacco user Tobacco use type: Cigarette Years Smoked: 30 years Review of Systems Const Denies night sweats ENT Denies change in voice, Denies lip swelling, Denies mouth pain, Reports nasal congestion, Reports nasal discharge and Denies tongue swelling Card Denies chest pain and Reports dyspnea on exertion Resp Denies change in phlegm color, Denies chest congestion, Reports cough, Denies hemoptysis, Denies excessive phlegm production, Reports dyspnea on exertion and Reports wheezing GI Denies abdominal pain Musc Denies no additional complaints Neuro Denies Neuro-related abnormal movements Psych Denies no additional complaints Nathan/Lymph Denies easy bleeding and Denies lymphadenopathy Aller/Immun Denies lip swelling, Denies tongue swelling and Reports wheezing Physical Exam Vital Signs: Last Vital Signs Pulse 63 12/26/23 08:40 BP 118/60 12/26/23 08:40 Pulse Ox 96 12/26/23 08:40 Oxygen Delivery Method Room Air 12/26/23 08:40 BMI result Body Mass Index 26.6 Const General: alert Neck Neck: Yes normal visual inspection, Yes full ROM and Yes no lymphadenopathy Chest Chest palpation & inspection: normal inspection of the chest Resp Effort & Inspection: prolonged expiratory phase Auscultation: no rhonchi, no wheezes and diminished lung sounds Cardio Rate: regular rate Rhythm: regular rhythm Heart sounds: S1 normal heart sound present and S2 normal heart sound present GI Palpation (GI): Soft to palpation and nontender Auscultation: normal bowel sounds Skin General skin exam: rashes and/or lesions noted Assessment & Plan Assessment & Plan (1) COPD (chronic obstructive pulmonary disease): Code(s): J44.9 - Chronic obstructive pulmonary disease, unspecified Category: Medical Qualifiers: COPD type: COPD with acute exacerbation Qualified Code(s): J44.1 - Chronic obstructive pulmonary disease with (acute) exacerbation (2) Bronchiectasis: Code(s): J47.9 - Bronchiectasis, uncomplicated Category: Medical Qualifiers: Bronchiectasis type: with acute lower respiratory infection Qualified Code(s): J47.0 - Bronchiectasis with acute lower respiratory infection (3) S/P lobectomy of lung: Comment: staple line visible from bronchoscopy due to regression. No evidence of bronchopleural fistula Code(s): Z90.2 - Acquired absence of lung [part of] Category: Surgical (4) Dyspnea: Code(s): R06.00 - Dyspnea, unspecified Category: Medical Qualifiers: Dyspnea type: dyspnea on exertion Qualified Code(s): R06.09 - Other forms of dyspnea Plan Continue Duoneb/Budesonide daily with CPT with percussion vest off Dev BID 28 days on 28 days off, continue Azithromycin MWF EKG CT chest through LDCT program. Stress ECHO ok PFTs in 4-6 months consider pulmonary rehab F/U 4-6 months Orders: Orders PFT pulmonary function test 6 Months J44.1 - Chronic obstructive pulmonary disease with (acute) exacerbation Coding Level of Care Code Est Pt Level 4 (52717) Diagnoses Chronic obstructive pulmonary disease with acute exacerbation J44.1 COPD type: COPD with acute exacerbation Bronchiectasis with acute lower respiratory infection J47.0 Bronchiectasis type: with acute lower respiratory infection S/P lobectomy of lung Z90.2 Dyspnea on exertion R06.09 Dyspnea type: dyspnea on exertion Time Spent (min) 17
[2023-12-26 08:40] VITALS: BP 118/60; PULSE 63; O2SAT 96; BMI 26.6
== END 2023-12-26 09:08 | disposition home or self-care (01) ==
PROVIDERS: PCP Physician Assistant; Visit Provider Hospitalist
DX: J44.1 Chronic obstructive pulmonary disease with (acute) exacerbation (principal); J47.0 Bronchiectasis with acute lower respiratory infection; Z90.2 Acquired absence of lung [part of]; R06.09 Other forms of dyspnea
CPT/HCPCS: 99214

== ENCOUNTER → 2023-12-26 08:30 | Outpatient (BNVA) | payer OTHER, SELFPAY | PROVIDERS: PCP Physician Assistant; Visit Provider Hospitalist | DX: J44.1 Chronic obstructive pulmonary disease with (acute) exacerbation (principal); J47.0 Bronchiectasis with acute lower respiratory infection; R06.00 Dyspnea, unspecified; R06.09 Other forms of dyspnea; Z90.2 Acquired absence of lung [part of] | CPT/HCPCS: 99212 ==

== ENCOUNTER 2024-04-30 08:24 | Outpatient (REF) | payer OTHER, SELFPAY | END 2024-04-30 08:25 | disposition home or self-care (01) | LOC: HO.CT 08:24 | PROVIDERS: PCP Physician Assistant; Visit Provider Physician Assistant Medical | DX: Z12.2 Encounter for screening for malignant neoplasm of respiratory organs (principal); Z87.891 Personal history of nicotine dependence | CPT/HCPCS: 71271 ==

== ENCOUNTER → 2024-04-30 08:25 | Outpatient (BNV) | payer OTHER, SELFPAY | PROVIDERS: PCP Physician Assistant; Visit Provider Radiology Diagnostic Radiology | DX: R91.8 Other nonspecific abnormal finding of lung field (principal) | CPT/HCPCS: 71271 ==

== ENCOUNTER 2024-06-29 08:20 | Outpatient (REF) | payer OTHER, SELFPAY ==
--- OUTSIDE RECORDS SUMMARY | 2024-06-29 09:58 | XMS_ITS | Clinical Summary ---
Author Organization [facility] Address [address] [place] [address] Care Team Providers Care Wheelabrator Operator Name Role Phone Dottie Louie Primary Care Provider [phone] Surgical History Surgery Date Site/Laterality Comments COLONOSCOPY 10/2009 PROCEDURE: [place] COLONOSCOPY STOMA DX INCLUDING COLLJ SPEC SPX OTHER SURGICAL HISTORY 2007 PROCEDURE: PARTIAL LUNG REMOVAL W/WEDGE RESECT OTHER SURGICAL HISTORY 1981 PROCEDURE: [place] LIG/TRNSXJ FLP TUBE ABDL/VAG APPR UNI/BI ANKLE SURGERY 2011 PROCEDURE: HISTORICAL ANKLE SURGERY; COMMENT: Ankle fracture s/p ORIF ANKLE SURGERY 2013 PROCEDURE: HISTORICAL ANKLE SURGERY; COMMENT: removal of hardware Medical History Medical History Date Comments Depressive disorder, not els ewhere classified 08/05/2005 DX:Depressive disorder, not elsewhere classified Anxiety state, unspecified 08/05/2005 DX:An xiety state, unspecified COPD (chronic obstructive pu lmonary disease) ([facility]) 01/03/2008 DX:COPD (chronic obstructive pulmonary disease) ([facility]) Family History Medical History Relation Name [...] age to complete this topic Care Teams Wheelabrator Operator Relationship Specialty Start Date End Date Dottie Louie PA [address] [place] [address] PCP - General Internal Medicine 06/22/17
== END 2024-06-29 08:21 | disposition home or self-care (01) ==
LOC: HO.LNP 08:20
PROVIDERS: PCP Physician Assistant; Visit Provider Hospitalist
DX: K21.9 Gastro-esophageal reflux disease without esophagitis (principal); J47.0 Bronchiectasis with acute lower respiratory infection; R06.00 Dyspnea, unspecified; R07.9 Chest pain, unspecified; J44.1 Chronic obstructive pulmonary disease with (acute) exacerbation
CPT/HCPCS: 87070; 87077; 87186; 87205; 99212

== ENCOUNTER 2024-06-29 08:20 | Outpatient (AMB) | payer OTHER, SELFPAY ==
--- OUTSIDE RECORDS SUMMARY | 2024-06-29 08:31 | XMS_ITS | Continuity of Care Document ---
Author Organization [facility] Address [address] [place] [address]- Care Team Providers Care Agricultural Agent Name Role Phone Alverto Gardiner Primary Care Physician Encounter 06/05/24 - 06/12/24 [facility] [address], [address] [place] [address]- Attending Physician: Dereck North MD Admitting Physician: Dereck North MD Referring Physician: Dereck North MD Encounter Type: OutPatient One Time Allergies, Adverse Reactions, Alerts Substance Criticality Severity Reaction Reaction Severity Status Other Environmental Allergy Active Immunizations Given and Recorded Vaccine Date Status Refusal Reason influenza virus vaccine, inactivated 01/30/23 Catracho rded influenza virus vaccine, inactivated 02/04/22 Catracho rded influenza virus vaccine, inactivated 01/09/21 Catracho rded influenza virus vaccine, inactivated 01/28/20 Catracho rded influenza virus vaccine, inactivated 01/28/19 Catracho rded influenza virus vaccine, inactivated 02/14/18 Catracho rded influenza virus vaccine, inactivated 02/15/17 Give n influenza virus vaccine, inactivated 01/18/13 Catracho rded influenza virus vaccine, inactivated 02/02/12 Catracho rded influenza virus vaccine, inactivated 01/21/11 Catracho rded influenza virus vaccine, inactivated 03/27/10 Catracho rded influenza virus vaccine, inactivated 1 03/19/08 [facility] [place] RSV vaccine preF3, recombinant 01/13/23 Recorded [id number] 12y+ bivalent booster vax 01/13/23 Recorded pneumococcal 20-valent conjugate vaccine 09/27/21 Recorded SARS-CoV-2 mRNA ([id number]) vax 09/27/21 Recorded tetanus/diphtheria/pertussis, acel(Tdap) 01/09/21 Recorded tetanus/diphtheria/pertussis, acel(Tdap) 09/29/16 Given tetanus/diphtheria/pertussis, acel(Tdap) 01/17/08 Recorded SARS-CoV-2 (COVID-19) mRNA BNT-162b2 vac 09/11/20 Recorded SARS-CoV-2 (COVID-19) mRNA BNT-162b2 vac 08/21/20 Recorded zoster vaccine, inactivated 01/28/20 Recorded pneumococcal 23-valent vaccine 06/18/19 Recorded pneumococcal 23-valent vaccine 06/03/17 Given Pneumococcal Vaccine (oldterm) 2 03/19/08 Given 1Result Comment: Lot and EXP [id number] 2Result Comment: Lot and Exp [id number] Medications albuterol-ipratropium 3 mg-0.5 mg/3 ml inhalation solution 3 mL, Neb, 4 times a day, Rxd by Dr graff, 0 Refills, Maintenance, 05/17/22 11:12:00 AM EST, Partial fill upon patient request if the prescription is for a schedule II opioid drug. Start Date: 05/17/22 Status: Ordered Repeat number: 1 Bethkis = 300 mg, Neb, 2 times a day, Rxd by dr Graff, 0 Refills, Maintenance, 05/17/22 11:12:00 AM EST, Partial fill upon patient request if the prescription is for a schedule II opioid drug. Start Date: 05/17/22 Status: Ordered Repeat number: 1 Bethkis 75 mg/mL inhalation solution 4 mL = 300 mg, Neb, 2 times a day, PRN Other, as needed for thick secretions, # 56 each, 0 Refills,Maintenance, 05/12/22 10:31:00 AM EST, Solution, Partial fill upon patient request if the prescription is for a schedule II opioid drug. Start Date: 05/12/22 Status: Ordered Quantity: 56.0 Unit: each Repeat number: 1 budesonide 0.25 mg/2 mL inhalation suspension 0.25 mg, 2, mL, Neb, 2 times a day, Rxd by dr Graff, Refills 0, Maintenance, 05/17/22 11:10:00 AMEST Start Date: 05/17/22 Status: Ordered Repeat number: 1 Calcium And Vitamin D Combination By Mouth, 0 Refills, Maintenance, 05/17/22 11:10:00 AM EST, Partial fill upon patient request if the prescription is for a schedule II opioid drug. Start Date: 05/17/22 Status: Ordered Repeat number: 1 docusate sodium = 100 mg, By Mouth, Daily, 0 Refills, Maintenance, 07/11/18 10:25:44 AM EST Start Date: 07/11/18 Status: Ordered Repeat number: 1 Duoneb Inhalation Solution 3, mL, Neb, 2 times a day, Refills 0, Maintenance, 07/11/18 10:26:47 AM EST Start Date: 07/11/18 Status: Ordered Repeat number: 1 Lexapro 20 mg oral tablet 1 tablet = 20 mg, By Mouth, Daily, # 30 tablet, 0 Refills, Maintenance, 05/11/22 2:29:00 PM EST, Tablet, Partial fill upon patient request if the prescription is for a schedule II opioid drug. Start Date: 05/11/22 Status: Ordered Quantity: 30.0 Unit: tablet Repeat number: 1 SEROquel 50 mg oral tablet 2 tablet = 100 mg, By Mouth, Daily at bedtime, Rx by Therapist, 0 Refills, Maintenance, 05/17/22 11:07:00 AM EST, Partial fill upon patient request if the prescription is for a schedule II opioid drug. Start Date: 05/17/22 Status: Ordered Repeat number: 1 shower grab bar. Dx COPD shower grab bar. Dx COPD, See Instructions, # 1 each, Refills 0, Tot. Refills 0, Maintenance, as needed for showering safety, 03/29/23 10:26:00 AM EST, Supply, 167, cm, 03/29/23 9:56:00 EST, Height, 69.5, kg, 08/19/22 10:06:00 EDT, Dry Weight Start Date: 03/29/23 Status: Ordered Quantity: 1.0 Unit: each Repeat number: 1 Ventolin HFA 108 mcg/inh inhalation aerosol with adapter 1 puffs, Inhalation, Every 6 hours, PRN for wheezing, # 18 Gm, 0 Refills, Maintenance, 05/11/22 2:38:00 PM EST, Aerosol, Partial fill upon patient request if the prescription is for a schedule II opioid drug. Start Date: 05/11/22 Status: Ordered Quantity: 18.0 Unit: g Repeat number: 1 Problem List Condition Confirmation Course Effective Dates Status H ealth Status Informant Abnormal radiographic examination Confirmed Active Anemia Confirmed Active CKD stage G3a/A2, GFR 45-59 and albumin creatinine ratio 30-299 mg/g Confirmed Active Depression Confirmed Active Impaired glucose metabolism Confirmed Active Hx of breast cancer Confirmed Active Hyperlipidemia Confirmed Active Breast cancer of lower-outer quadrant of right female breast; Right breast cancer-[id number], right lower quadrant, grade 1 , ER /OK + 8/5 and Her 2 negative Confirmed 2018 Active Mass of soft tissue of right arm Confirmed Active Colitis: crohns and ischemic Confirmed Active COPD with emphysema s/p pneumonectomy Confirmed Active MDD (major depressive disorder), recurrent, in partial remission Confirmed Active Results Radiology Reports * Exam Date Time Procedure Performing Provider Status 06/04/24 9:29 AM Oink Marito Lares; Auth (Verified) Notes: (Oink) Reason For Exam: Calculus of kidney RESULT: [employer] Reason: Calculus of kidney COMPARISON: 11/16/2021. FINDINGS: Right kidney: 9.5 cm in length. No hydronephrosis. Normal parenchymal thickness and echotexture. Nostones. No suspicious mass. Left kidney: 8.6 cm in length. No hydronephrosis. Normal parenchymal thickness and echotexture. No stones. At the upper to midpole there is a 0.5 x 0.5 x 0.3 cm cyst. IMPRESSION: There is no evidence of renal calculi or obstructive uropathy. Subcentimeter left renal cyst. WSN: [id number] Ordering Physician: Dereck North Dictated By: Lidia Hudson MD Dictated Date/Time: 06/05/24 10:52 a Reviewed By: Lidia Hudson MD Signed By: Lidia Hudson MD Signed Date/Time: 06/05/24 10:52 am Transcribed By: JAMARCUS Transcribed Date/Time: 06/05/24 10:51 am Social History Social History Type Response Smoking Status Former smoker, quit more than 30 days ago; Other: QUIT OVER 20 YRS AGO; entered on: 05/11/22 Sex Sex Representation Female (finding) Patient Care team information Care Team Personnel Name: Jennifer Anderson Position: [facility] Onco RN Member Role: Primary Care Nurse Name: Kassidy Calles RN Position: [facility] RN Member Role: Primary Care Nurse Name: Holly Mohan RN Position: [facility] SN RN Member Role: Primary Care Nurse Name: Rupert Ray RN Position: [facility] RN Member Role: Primary Care Nurse Name: Alverto Gardiner Position: [facility] PCO Associate Professional Member Role: PCP Address: [address] [place] [address]- Telecom: Name: Janet Vazquez RN Position: [facility] Onco RN Member Role: Primary Care Nurse Name: Ana Randhawa RN Position: [facility] RN Member Role: Primary Care Nurse Name: Ann Casper RN Position: [facility] SN RN Member Role: Primary Care Nurse Name: Mamie Helm RN Position: [facility] Medical Billing Coder Member Role: Primary Care Nurse Name: Dereck North MD Position: [facility] Physician - Urology Med Service: Urology Member Role: Ordering Physician Address: [address] [place] [address] [address] [facility] [place] [address]- [place] Telecom: Care Team Related Persons Name: CHRISTINA GUERRA Insurance Providers Guarantor name: TIMOTHY MARI Health Plan Information #: 1 Payer: [employer] Member Number: [id number] Policy Number: NA Group Number: [facility] Health Plan Information #: 2 Payer: [facility] Member Number: [id number] Policy Number: NA Group Number: NA
--- OUTSIDE RECORDS SUMMARY | 2024-06-29 08:31 | XMS_ITS | Clinical Summary ---
Author Organization [facility] Address [address] [place] [address] Care Team Providers Care Pv Design And Installation Technician Name Role Phone Dottie Louie Primary Care Provider [phone] Surgical History Surgery Date Site/Laterality Comments COLONOSCOPY 10/2009 PROCEDURE: [place] COLONOSCOPY STOMA DX INCLUDING COLLJ SPEC SPX OTHER SURGICAL HISTORY 2007 PROCEDURE: PARTIAL LUNG REMOVAL W/WEDGE RESECT OTHER SURGICAL HISTORY 1981 PROCEDURE: [place] LIG/TRNSXJ FLP TUBE ABDL/VAG APPR UNI/BI ANKLE SURGERY 2011 PROCEDURE: HISTORICAL ANKLE SURGERY; COMMENT: Ankle fracture s/p ORIF ANKLE SURGERY 2013 PROCEDURE: HISTORICAL ANKLE SURGERY; COMMENT: removal of hardware Medical History Medical History Date Comments Depressive disorder, not els ewhere classified 08/05/2005 DX:Depressive disorder, not elsewhere classified Anxiety state, unspecified 08/05/2005 DX:An xiety state, unspecified COPD (chronic obstructive pu lmonary disease) ([facility]) 01/03/2008 DX:COPD (chronic obstructive pulmonary disease) ([facility]) Family History Medical History Relation Name Comments Cataracts Father Colon cancer Mother Blindness Neg Hx Breast cancer Neg Hx Glaucoma Neg Hx Macular degeneration Neg Hx Ovarian cancer Neg Hx Strabismus Neg Hx Relation Name Status Comments Brother Alive 6 brothers, no hx of DM, HTN, CAD, cancer Father emphysema Maternal Grandfather Maternal Grandmother Mother colon ca at 67 Paternal Grandfather Paternal Grandmother Sister Alive 9 sisters 1 d in car accident Social History Tobacco Use Types Packs/Day Years Used Date Smoking Tobacco: Former Smokeless Tobacco: Never Alcohol Use Standard Drinks/Week Comments No 0 (1 standard drink = 0.6 oz pur e alcohol) Comments Unknown Sex and Gender Information Value Date Recorded Sex Assigned at Not on file Legal Sex Female 2:52 AM EST Gender Identity Not on file Sexual Orientation Not on file Obstetrics History Plan of Treatment Health Maintenance Due Date Last Done Comments Breast Cancer Screening 1955 Pneumococcal Vaccine: 50+ Years (1 of 1 - PCV) 2006 Zoster Vaccines (1 of 2) 2006 DTaP,Tdap,and Td Vaccines (2 - Td or Tdap) 01/16/2018 01/17/2008 COVID-19 Vaccine (1 - 2023- season) 2024 Influenza Vaccine (#1) 2024 3, 02/02/2012, 01/21/2011, Additional history exists RSV Immunization Patients 60+ Years Old (1 - 1-dose 75+ series) 08/10/2031 HIB Vaccines Aged Out No longer eligi ble based on patient's age to complete this topic HPV Vaccines Aged Out No longer eligi ble based on patient's age to complete this topic Hepatitis A Vaccines Aged Out No long er eligible based on patient's age to complete this topic Hepatitis B Vaccines Aged Out No long er eligible based on patient's age to complete this topic IPV Vaccines Aged Out No longer eligi ble based on patient's age to complete this topic MMR Vaccines Aged Out No longer eligi ble based on patient's age to complete this topic Meningococcal ACWY Vaccine Aged Out N o longer eligible based on patient's age to complete this topic Meningococcal B Vacine Aged Out No lo nger eligible based on patient's age to complete this topic RSV Immunization Patients Under 20 months Aged Out No longer eligible based on patient's age to complete this topic Varicella Vaccines Aged Out No longer eligible based on patient's age to complete this topic Care Teams Pv Design And Installation Technician Relationship Specialty Start Date End Date Dottie Louie PA [address] [place] [address] PCP - General Internal Medicine 06/22/17
--- NOTE | 2024-06-29 08:48 | MHC.OFFVIS ---
Vital Signs 06/29/24 08:49 Height 5 ft 6 in Weight 166 lb 7.184 oz BMI 26.9 BP 116/78 Blood Pressure Location Rt brachial Position Sitting Pulse 64 Pulse Source Pulse Oximeter Pulse Oximetry (%) 94 Oxygen Delivery Method Room Air Intake Visit Reasons: COPD Allergies No Known Allergies Allergy (Verified 06/29/24 08:52) HPI Comments Details: Patient is a 68 y/o woman with a history of known COPD in addition to pneumothorax status post lung resection of the right upper lobe area. She also had breast cancer of the right breast s/p xrt. She has been participating with pulmonary rehabilitation for some time. She did very well. Now that she has completed the course she started demonstrating increasing shortness of breath and cough. She has a croupy cough. Moderate severity. She is getting more short of breath. She has been having to use a nebulizer at times. She has been using the Spiriva Respimat with very good effect. However, her insurance Center letter that they were going to be covering and she is very concerned about this since she has failed multiple inhalers including all the powder inhalers October her throat. Will try sending Spiriva again since his so effective in addition to additional inhaler therapy. She did have an x-ray back in April 2018 demonstrating some postoperative changes lung volume and other changes. At this point she should really get a CT scan to better address her her symptoms and her abnormal chest x-ray. Today the patient is here for pulmonary follow-up visit. She continues to have a productive cough with wheezing. Moderate severity. She hasn't really felt any better from the last visit. She did have a CT scan of the chest which we personally reviewed demonstrating her postoperative changes in addition to her radiation changes from her right-sided breast cancer. . 09/19/2023 the patient is here for a pulmonary follow-up visit. The patient is doing fairly well although she does complaint of dyspnea on exertion. Moderate severity even with minimal activity. She has been struggling with her breathing. Unfortunately she still smoking at times primarily marijuana. Explained to her that with the lung condition she exposing herself to any smoke or any fumes or toxins that could be further hindering her lung capacity. The patient has been using her respiratory therapy with good effect in the azithromycin Tuesday macrolide therapy has been very effective for her. She knows to get an EKG. In the meantime we did take it for 6 minute walk test. The patient did desaturate down to about 91% in her heart rate did increase over 120 beats per minute with the activity. She did walk about 300 ft. Explained to the patient that although she does have significant pulmonary disease she may have a cardiopulmonary component. Therefore I will order an EKG and the patient should also have a stress test. We will also request blood work at this time including a venous gas. 12/26/2023 the patient is here for a pulmonary follow-up visit. Overall she is doing well. Still has dyspnea on exertion. Hhbt-bm-dhyzabyw severity. But more stable. She is no longer using the inhaled tobramycin she does not feel significant congestion. She has not gotten a call either she states. At this point will hold off additional therapies especially she is doing well. She is tolerating the macrolide suppression therapy and we did look at an EKG which was stable. She will continue with the current respiratory therapy. Will plan to repeat her PFTs in 4-6 months and will follow-up after that. The patient may be a good candidate for pulmonary rehabilitation will discuss that further after her PFTs. 06/29/2024 the patient is here for pulmonary follow-up visit. She has not been feeling well for the last few weeks. She is concerned she has pneumonia. She has been expectorating dark sputum sometimes green sometimes yellow but sometimes dark. She states it does not look like blood. She also complains of worsening shortness of breath chest tightness. She has been on the azithromycin 3 times a week. Initially was working but nods not seem to be doing anything for her. She did undergo a CT scan of the chest dated did personally review back in 04/27/2024. No evidence of any airspace disease done. Although she does have some bronchiectasis and stable pulmonary nodules as well as postoperative changes. The patient does have significant wheezing rhonchi on exam. She will be started on Levaquin since she has a history of Pseudomonas. She had been on inhaled tobramycin before. Will treated with Levaquin and will also get a sputum culture. She continue using her nebulizers as prescribed. Will follow-up in 3 months and will change her PFT for 3 months from now. [facility] Medical History (Updated 05/24/24 @ 07:56 by Dominique Raphael PA-C) History of cancer of right breast Personal history of nicotine dependence Dyspnea Bronchiectasis Hx of radiation therapy COPD (chronic obstructive pulmonary disease) Pneumonia Surgical History (Updated 05/24/24 @ 07:56 by Dominique Raphael PA-C) History of bronchoscopy History of lobectomy of lung Social History Patient Tobacco Use Status: Former Tobacco user Tobacco use type: Cigarette Years Smoked: 30 years Review of Systems Const Denies night sweats ENT Denies change in voice, Denies lip swelling, Denies mouth pain, Reports nasal congestion, Reports nasal discharge and Denies tongue swelling Card Denies chest pain and Reports dyspnea on exertion Resp Denies change in phlegm color, Denies chest congestion, Reports cough, Denies hemoptysis, Denies excessive phlegm production, Reports dyspnea on exertion and Reports wheezing GI Denies abdominal pain Musc Denies no additional complaints Neuro Denies Neuro-related abnormal movements Psych Denies no additional complaints Nathan/Lymph Denies easy bleeding and Denies lymphadenopathy Aller/Immun Denies lip swelling, Denies tongue swelling and Reports wheezing Physical Exam Vital Signs: Last Vital Signs Pulse 64 06/29/24 08:49 BP 116/78 06/29/24 08:49 Pulse Ox 94 06/29/24 08:49 Oxygen Delivery Method Room Air 06/29/24 08:49 BMI result Body Mass Index 26.9 Const General: alert Neck Neck: Yes normal visual inspection, Yes full ROM and Yes no lymphadenopathy Chest Chest palpation & inspection: normal inspection of the chest Resp Effort & Inspection: prolonged expiratory phase Auscultation: rhonchi, no wheezes and diminished lung sounds Cardio Rate: regular rate Rhythm: regular rhythm Heart sounds: S1 normal heart sound present and S2 normal heart sound present GI Palpation (GI): Soft to palpation and nontender Auscultation: normal bowel sounds Skin General skin exam: rashes and/or lesions noted Assessment & Plan Assessment & Plan (1) COPD (chronic obstructive pulmonary disease): Code(s): J44.9 - Chronic obstructive pulmonary disease, unspecified Category: Medical Qualifiers: COPD type: COPD with acute exacerbation Qualified Code(s): J44.1 - Chronic obstructive pulmonary disease with (acute) exacerbation (2) Bronchiectasis: Code(s): J47.9 - Bronchiectasis, uncomplicated Category: Medical Qualifiers: Bronchiectasis type: with acute lower respiratory infection Qualified Code(s): J47.0 - Bronchiectasis with acute lower respiratory infection (3) Dyspnea: Code(s): R06.00 - Dyspnea, unspecified Category: Medical Qualifiers: Dyspnea type: dyspnea on exertion Qualified Code(s): R06.09 - Other forms of dyspnea Plan Continue Duoneb/Budesonide daily with CPT with percussion vest off Dev BID 28 days on 28 days off, consider restarting if +pseudomonas again start Levaquin holdin Azithromycin MWF CT chest through LDCT program. Stress ECHO ok Consider pulmonary rehab F/U 3-4 months Orders: Orders Sputum Cult + Gram stain 06/29/24 R91.1 - Solitary pulmonary nodule Sputum Cult + Gram stain 06/29/24 J47.0 - Bronchiectasis with acute lower respiratory infection PFT pulmonary function test 3 Months J47.0 - Bronchiectasis with acute lower respiratory infection Medications: New prednisone PO daily; Take 6 tabs daily x 3 days, then 5 tabs x 3 days, then 4 tabs x 3 days, then 3 tabs x 3 days, then 2 tabs daily x 3 days, then 1 tab x 3 days to complete. 63 tabs 0RF 18 days levofloxacin 500 mg PO DAILY 14 tabs 0RF 14 days Coding Level of Care Code Est Pt Level 4 (94058) Complex EM visit Add On G2211 Diagnoses Chronic obstructive pulmonary disease with acute exacerbation J44.1 COPD type: COPD with acute exacerbation Bronchiectasis with acute lower respiratory infection J47.0 Bronchiectasis type: with acute lower respiratory infection Dyspnea on exertion R06.09 Dyspnea type: dyspnea on exertion Time Spent (min) 17
[2024-06-29 08:49] VITALS: BP 116/78; PULSE 64; O2SAT 94; BMI 26.9
== END 2024-06-29 09:16 | disposition home or self-care (01) ==
PROVIDERS: PCP Physician Assistant; Visit Provider Hospitalist
DX: J44.1 Chronic obstructive pulmonary disease with (acute) exacerbation (principal); J47.0 Bronchiectasis with acute lower respiratory infection; R06.09 Other forms of dyspnea
CPT/HCPCS: 99214; G2211

== ENCOUNTER 2024-09-14 10:09 | Outpatient (AMB) | payer OTHER, SELFPAY ==
[2024-09-14 10:14] VITALS: BP 110/60; PULSE 76; O2SAT 97; BMI 27.0
--- NOTE | 2024-09-14 10:14 | MHC.OFFVIS ---
Vital Signs 09/14/24 10:14 Height 5 ft 6 in Weight 167 lb 8.821 oz BMI 27.0 BP 110/60 Blood Pressure Location Lt brachial Position Sitting Pulse 76 Pulse Source Pulse Oximeter Pulse Oximetry (%) 97 Oxygen Delivery Method Room Air Intake Visit Reasons: COPD Sawyer Helper Required: No Accompanied by: Self / Same As Patient Allergies No Known Allergies Allergy (Verified 09/14/24 10:18) HPI Comments Details: Patient is a 69 y/o woman with a history of known COPD in addition to pneumothorax status post lung resection of the right upper lobe area. She also had breast cancer of the right breast s/p xrt. She has been participating with pulmonary rehabilitation for some time. She did very well. Now that she has completed the course she started demonstrating increasing shortness of breath and cough. She has a croupy cough. Moderate severity. She is getting more short of breath. She has been having to use a nebulizer at times. She has been using the Spiriva Respimat with very good effect. However, her insurance Center letter that they were going to be covering and she is very concerned about this since she has failed multiple inhalers including all the powder inhalers October her throat. Will try sending Spiriva again since his so effective in addition to additional inhaler therapy. She did have an x-ray back in April 2018 demonstrating some postoperative changes lung volume and other changes. At this point she should really get a CT scan to better address her her symptoms and her abnormal chest x-ray. Today the patient is here for pulmonary follow-up visit. She continues to have a productive cough with wheezing. Moderate severity. She hasn't really felt any better from the last visit. She did have a CT scan of the chest which we personally reviewed demonstrating her postoperative changes in addition to her radiation changes from her right-sided breast cancer. . 09/19/2023 the patient is here for a pulmonary follow-up visit. The patient is doing fairly well although she does complaint of dyspnea on exertion. Moderate severity even with minimal activity. She has been struggling with her breathing. Unfortunately she still smoking at times primarily marijuana. Explained to her that with the lung condition she exposing herself to any smoke or any fumes or toxins that could be further hindering her lung capacity. The patient has been using her respiratory therapy with good effect in the azithromycin Imer Wednesday Sixto macrolide therapy has been very effective for her. She knows to get an EKG. In the meantime we did take it for 6 minute walk test. The patient did desaturate down to about 91% in her heart rate did increase over 120 beats per minute with the activity. She did walk about 300 ft. Explained to the patient that although she does have significant pulmonary disease she may have a cardiopulmonary component. Therefore I will order an EKG and the patient should also have a stress test. We will also request blood work at this time including a venous gas. 12/26/2023 the patient is here for a pulmonary follow-up visit. Overall she is doing well. Still has dyspnea on exertion. Uuzg-nh-dznobvlu severity. But more stable. She is no longer using the inhaled tobramycin she does not feel significant congestion. She has not gotten a call either she states. At this point will hold off additional therapies especially she is doing well. She is tolerating the macrolide suppression therapy and we did look at an EKG which was stable. She will continue with the current respiratory therapy. Will plan to repeat her PFTs in 4-6 months and will follow-up after that. The patient may be a good candidate for pulmonary rehabilitation will discuss that further after her PFTs. 06/29/2024 the patient is here for pulmonary follow-up visit. She has not been feeling well for the last few weeks. She is concerned she has pneumonia. She has been expectorating dark sputum sometimes green sometimes yellow but sometimes dark. She states it does not look like blood. She also complains of worsening shortness of breath chest tightness. She has been on the azithromycin 3 times a week. Initially was working but nods not seem to be doing anything for her. She did undergo a CT scan of the chest dated did personally review back in 04/27/2024. No evidence of any airspace disease done. Although she does have some bronchiectasis and stable pulmonary nodules as well as postoperative changes. The patient does have significant wheezing rhonchi on exam. She will be started on Levaquin since she has a history of Pseudomonas. She had been on inhaled tobramycin before. Will treated with Levaquin and will also get a sputum culture. She continue using her nebulizers as prescribed. Will follow-up in 3 months and will change her PFT for 3 months from now. 09/14/2024 the patient is here for pulmonary follow-up visit. Overall she is doing okay. She has had a very eventful few months where she was initially diagnosed with significant diverticulitis. She was evaluated by surgery but did not require surgery which is reassuring. In addition to that he was found to have some abnormality with her uterus and she will need to follow-up with administration manager for that. In the meantime she does have a colonoscopy coming up. From a respiratory status has been doing okay although she has been having increasing wheezing. She also has chest tightness at times. Rmpb-rn-tgtlkxub severity. She does have her nebulized therapy but she has not been using it regularly. Will go ahead and start her on Breztri right now since she does not like the powder inhalers and does not tolerate them. She can use the Breztri than the rescue inhaler in between. Hopefully this will help improve her respiratory status so she can have her colonoscopy does coming up. She also has the inhaled tobramycin that she uses 28 days on 20 days off. She did have a CT scan of the abdomen done at [facility] which I personally reviewed lung windows did demonstrate some interstitial changes of the right base. Will continue to monitor her symptoms and response to therapy and she will follow-up in 4-6 months. If she has any issues prior to that she will call for an earlier assessment. [facility] Medical History (Updated 09/16/24 @ 22:47 by Charly Graff MD) History of cancer of right breast Personal history of nicotine dependence Dyspnea Bronchiectasis Hx of radiation therapy COPD (chronic obstructive pulmonary disease) Pneumonia Surgical History (Updated 05/24/24 @ 07:56 by Dominique Raphael PA-C) History of bronchoscopy History of lobectomy of lung Social History Patient Tobacco Use Status: Former Tobacco user Tobacco use type: Cigarette Years Smoked: 30 years Review of Systems Const Denies chills, Denies fatigue, Denies fever(s), Denies weight gain and Denies weight loss ENT Denies dizziness, Denies lip swelling and Denies tongue swelling Card Denies chest pain, Denies leg edema, Denies lightheadedness, Denies palpitations, Reports dyspnea on exertion, Denies orthopnea and Denies other Resp Reports cough, Reports dyspnea on exertion and Reports wheezing GI Denies hematochezia and Denies change in stool character Musc Denies abnormal gait, Denies muscle weakness, Denies numbness, Denies radiating pain into limb and Denies tingling Neuro Denies abnormal gait, Denies dizziness, Denies numbness and Denies tingling Psych Denies no additional complaints Endo Denies fatigue and Denies palpitations Nathan/Lymph Denies easy bleeding and Denies lymphadenopathy Aller/Immun Denies lip swelling, Denies tongue swelling and Reports wheezing Physical Exam Vital Signs: Last Vital Signs Pulse 76 09/14/24 10:14 BP 110/60 09/14/24 10:14 Pulse Ox 97 09/14/24 10:14 Oxygen Delivery Method Room Air 09/14/24 10:14 BMI result Body Mass Index 27.0 Const General: alert Neck Neck: Yes normal visual inspection, Yes full ROM and Yes no lymphadenopathy Chest Chest palpation & inspection: normal inspection of the chest Resp Effort & Inspection: prolonged expiratory phase Auscultation: rhonchi, no wheezes and diminished lung sounds Cardio Rate: regular rate Rhythm: regular rhythm Heart sounds: S1 normal heart sound present and S2 normal heart sound present GI Palpation (GI): Soft to palpation and nontender Auscultation: normal bowel sounds Skin General skin exam: rashes and/or lesions noted Assessment & Plan Assessment & Plan (1) COPD (chronic obstructive pulmonary disease): Code(s): J44.9 - Chronic obstructive pulmonary disease, unspecified Category: Medical Qualifiers: COPD type: COPD with acute exacerbation Qualified Code(s): J44.1 - Chronic obstructive pulmonary disease with (acute) exacerbation (2) Bronchiectasis: Code(s): J47.9 - Bronchiectasis, uncomplicated Category: Medical Qualifiers: Bronchiectasis type: with acute lower respiratory infection Qualified Code(s): J47.0 - Bronchiectasis with acute lower respiratory infection (3) Dyspnea: Code(s): R06.00 - Dyspnea, unspecified Category: Medical Qualifiers: Dyspnea type: dyspnea on exertion Qualified Code(s): R06.09 - Other forms of dyspnea (4) Pre-op chest exam: Code(s): Z01.811 - Encounter for preprocedural respiratory examination Category: Medical Plan hold Budesonide start Breztri BID Neb daily with CPT with percussion vest off Dev BID 28 days on 28 days off, consider restarting if +pseudomonas again Azithromycin MWF CT chest through LDCT program. Stress ECHO ok Consider pulmonary rehab Proceed with colonoscopy.Does have increased pulmonary risk, medically optimized from a pulmonary standpoint F/U 3-4 months Medications: New jdpzpuhvfd-vfrcxhdp-bjbeurempw 160-9-4.8 mcg/actuation (Breztri Aerosphere) 2 inhalations inhalation BID 10.7 grams 0RF 30 days Coding Level of Care Code Est Pt Level 4 (21600) Complex EM visit Add On G2211 Diagnoses Chronic obstructive pulmonary disease with acute exacerbation J44.1 COPD type: COPD with acute exacerbation Bronchiectasis with acute lower respiratory infection J47.0 Bronchiectasis type: with acute lower respiratory infection Dyspnea on exertion R06.09 Dyspnea type: dyspnea on exertion Pre-op chest exam Z01.811 Time Spent (min) 17
--- OUTSIDE RECORDS SUMMARY | 2024-09-14 10:39 | XMS_ITS | Clinical Summary ---
Author Organization [facility] Address [address] [place] [address] Care Team Providers Care Material Processor Name Role Phone Dottie Louie Primary Care Provider [phone] Surgical History Surgery Date Site/Laterality Comments COLONOSCOPY 10/2009 PROCEDURE: WI COLONOSCOPY STOMA DX INCLUDING COLLJ SPEC SPX OTHER SURGICAL HISTORY 2007 PROCEDURE: PARTIAL LUNG REMOVAL W/WEDGE RESECT OTHER SURGICAL HISTORY 1981 PROCEDURE: WI LIG/TRNSXJ FLP TUBE ABDL/VAG APPR UNI/BI ANKLE SURGERY 2011 PROCEDURE: HISTORICAL ANKLE SURGERY; COMMENT: Ankle fracture s/p ORIF ANKLE SURGERY 2013 PROCEDURE: HISTORICAL ANKLE SURGERY; COMMENT: removal of hardware Medical History Medical History Date Comments Depressive disorder, not els ewhere classified 08/05/2005 DX:Depressive disorder, not elsewhere classified Anxiety state, unspecified 08/05/2005 DX:An xiety state, unspecified COPD (chronic obstructive pu lmonary disease) ([facility] V24, [facility] V28) 01/03/2008 DX:COPD (chronic o bstructive pulmonary disease) ([facility]) Family History Medical History Relation Name Comments [...] Tdap) 01/16/2018 01/17/2008 COVID-19 Vaccine (1 - season) 2024 Influenza Vaccine (Season Ended) 2025 01/18/2013, 02/02/2012, 01/21/2011, Additional history exists RSV Immunization Adult Patients (1 - 1-dose 75+ series) 08/10/2031 HIB [...] age to complete this topic Meningococcal B Vaccine Aged Out No l onger eligible based on patient's age to complete this topic RSV Immunization Patients Under 20 months Aged Out No longer eligible based on patient's age to complete this topic Varicella Vaccines Aged Out No longer eligible based on patient's age to complete this topic Care Teams Material Processor Relationship Specialty Start Date End Date Dottie Louie PA [address] [place] [address] PCP - General Internal Medicine 06/22/17
--- OUTSIDE RECORDS SUMMARY | 2024-09-14 10:39 | XMS_ITS | Continuity of Care Document ---
Author Organization [facility] Address [address] [place] [address]- Care Team Providers Care Lead Nuclear Medicine Technologist Name Role Phone Alverto Gardiner Primary Care Physician [phone] Encounter [facility] Date(s): 08/14/24 - 09/13/24 [facility] [address] [place] [address]- Encounter Type: Triage Allergies, Adverse Reactions, Alerts Substance Criticality Severity Reaction Reaction Severity Status Other Environmental Allergy Active Immunizations Given and Recorded Vaccine Date Status Refusal Reason SARS-CoV-2(COVID-19)mRNA-LNP vac([id number]) 01/12/24 Recorded influenza virus vaccine, inactivated 01/04/24 Catracho rded influenza virus vaccine, inactivated 01/30/23 Catracho rded [...] [place] RSV vaccine preF3, recombinant 01/13/23 Recorded [id number]-PiW-[id number] 12y+ bivalent booster vax 01/13/23 Recorded pneumococcal 20-valent conjugate vaccine 09/27/21 Recorded SARS-CoV-2 mRNA (qekdvqc-hsnh-mixco) vax 09/27/21 Recorded tetanus/diphtheria/pertussis, acel(Tdap) 01/09/21 Recorded tetanus/diphtheria/pertussis, acel(Tdap) 09/29/16 Given tetanus/diphtheria/pertussis, acel(Tdap) 01/17/08 Recorded SARS-CoV-2 (COVID-19) mRNA BNT-162b2 vac 09/11/20 Recorded SARS-CoV-2 (COVID-19) mRNA BNT-162b2 vac 08/21/20 Recorded zoster vaccine, inactivated 01/28/20 Recorded pneumococcal 23-valent vaccine 06/18/19 Recorded pneumococcal 23-valent vaccine 06/03/17 Given Pneumococcal Vaccine (oldterm) 2 03/19/08 Given 1Result Comment: Lot and EXP [id number] 2Result Comment: Lot and Exp [id number] Medications Albuterol (Eqv-Ventolin HFA) 90 mcg/inh inhalation aerosol 2 inhalation = 180 mcg, Inhalation, Every 6 hours, PRN as needed for shortness of breath or wheezing, # 8.5 Gm, 0 Refills, Maintenance, 07/25/24 7:47:00 PM EDT, Aerosol, Partial fill upon patient request if the prescription is for a schedule II opioid drug. Start Date: 07/25/24 Status: Ordered Quantity: 8.5 Unit: g Repeat number: 1 albuterol-ipratropium 3 mg-0.5 mg/3 ml inhalation solution 3 ML INHALED 2 TIMES A DAY Start Date: 07/25/24 Status: Ordered Repeat number: 1 azithromycin 250 mg oral tablet 1 tablet = 250 mg, By Mouth, Every Tuesday, Tuesday and Tuesday Start Date: 07/25/24 Status: Ordered Repeat number: 1 budesonide 0.5 mg/2 mL inhalation suspension 0.5 mg, 2, mL, Neb, 2 times a day, Maintenance, 07/25/24 7:49:00 PM EDT, Suspension Start Date: 07/25/24 Status: Ordered Repeat number: 1 escitalopram 5 mg oral tablet TAKE 1 TABLET BY MOUTH ONCE A DAY ADD TO 20 MG DOSE FOR A TOTAL OF 25 MG Start Date: 07/25/24 Status: Ordered Repeat number: 1 Fish Oil By Mouth, 0 Refills, Maintenance, 07/16/24 2:31:00 PM EDT, Partial fill upon patient request if the prescription is for a schedule II opioid drug. Start Date: 07/16/24 Status: Ordered Repeat number: 1 Lexapro 20 mg oral tablet 1 tablet = 20 mg, By Mouth, Daily, # 30 tablet, 0 Refills, Maintenance, 05/11/22 2:29:00 PM EST, Tablet, Partial fill upon patient request if the prescription is for a schedule II opioid drug. Start Date: 05/11/22 Status: Ordered Quantity: 30.0 Unit: tablet Repeat number: 1 MiraLax oral powder for reconstitution = 17 Gm, By Mouth, Daily, dissolve in 4 to 8 oz of beverage, # 510 Gm, 5 Refills, Maintenance, 07/30/24 3:47:00 PM EDT, REC Powder, [id number], 17 Gm By Mouth Daily,Instr:dissolve in 4 to 8 ozof beverage, 168, cm, 07/30/24 7:58:00 EDT, Height, 74.2, kg, 07/24/24 20:35:00 EDT, Dry Weight Start Date: 07/30/24 Status: Ordered Quantity: 510.0 Unit: g Repeat number: 6 PEG-3350 with Electrolytes (Eqv-GoLYTELY) oral powder for reconstitution See Instructions, Per GI office protocol, # 4,000 mL, 0 Refills, Maintenance, 09/04/24 8:46:00 AM EDT, [id number], Partial fill upon patient request if the prescription is for a schedule II opioid drug., Per GI office protocol, 168, cm, 09/03/24 8:03:00 EDT, Height, 74.2, kg, 07/24/24 20:35:00 EDT, Dry Weight Start Date: 09/04/24 Status: Ordered Quantity: 4000.0 Unit: mL Repeat number: 1 propranolol 20 mg oral tablet 20 mg, 1, tablet, By Mouth, Daily, PRN, Refills 0, Maintenance, Rx'd by Adilia Perez, :32:00 PM EDT Start Date: 07/16/24 Status: Ordered Repeat number: 1 QUEtiapine 50 mg oral tablet TAKE 2 TABLETS BY MOUTH EVERY DAY AT NIGHT Start Date: 07/25/24 Status: Ordered Repeat number: 1 rosuvastatin 5 mg oral tablet 1 tablet = 5 mg, By Mouth, Daily, # 90 tablet, 2 Refills, Maintenance, 08/20/24 3:49:00 PM EDT, Tablet, [id number], Partial fill upon patient request if the prescription is for a schedule II opioid drug., 168, cm, 08/20/24 13:14:00 EDT, Height, 74.2, kg, 07/24/24 20:35:00 EDT, Dry Weight Start Date: 08/20/24 Status: Ordered Quantity: 90.0 Unit: tablet Repeat number: 3 Vitamin E By Mouth, 0 Refills, Maintenance, 07/16/24 2:34:00 PM EDT Start Date: 07/16/24 Status: Ordered Repeat number: 1 Problem List Condition Confirmation Course Effective Dates Status H ealth Status Informant Anxiety Confirmed Active Bronchiectasis Confirmed Active CKD stage G3a/A2, GFR 45-59 and albumin creatinine ratio 30-299 mg/g Confirmed Active Diverticulitis Confirmed Active Former smoker Confirmed Active History of breast cancer Confirmed Active Hyperlipidemia Confirmed Active Mass of soft tissue of right arm Confirmed Active Colitis: crohns and ischemic Confirmed Active Pancytopenia Confirmed Active Encounter for screening colonoscopy Confirmed Active COPD with emphysema s/p pneumonectomy Confirmed Active MDD (major depressive disorder), recurrent, in partial remission Confirmed Active Social History Social History Type Response Smoking Status Former smoker, quit more than 30 days ago; Other: QUIT OVER 20 YRS AGO; entered on: 05/11/22 Sex Sex Representation Female (finding) Patient Care team information Care Team Personnel Name: Jennifer Anderson Position: [facility] Onco RN Member Role: Primary Care Nurse Name: Kassidy Calles RN Position: [facility] RN Member Role: Primary Care Nurse Name: Holly Mohan RN Position: [facility] SN RN Member Role: Primary Care Nurse Name: Rupert Ray RN Position: S RN Member Role: Primary Care Nurse Name: Alverto Gardiner Position: [facility] PCO Associate Professional Member Role: PCP Address: [address] [place] [address] Telecom: Name: Janet Vazquez RN Position: [facility] Onco RN Member Role: Primary Care Nurse Name: Ana Randhawa RN Position: [facility] RN Member Role: Primary Care Nurse Name: Ann Casper RN Position: [facility] RN Member Role: Primary Care Nurse Name: Mamie Helm RN Position: [facility] Fuel Retrofitting Technician Member Role: Primary Care Nurse Name: Charly Casanova RN Position: [facility] RN Member Role: Primary Care Nurse Care Team Related Persons Name: CHRISTINA GUERRA Insurance Providers Guarantor name: [facility] Information #: 1 Payer: [facility] Member Number: NA Policy Number: NA Group Number: NA
--- OUTSIDE RECORDS SUMMARY | 2024-09-14 10:39 | XMS_ITS | Continuity of Care Document ---
Author Organization [facility] Address [address] [place] [address]- Care Team Providers Care Business Services Specialist Sales Name Role Phone Alverto Gardiner Primary Care Physician [phone] [facility]counter [facility] Date(s): 08/09/24 - 09/08/24 [facility] [address] [place] [address]- Encounter Type: Triage Allergies, Adverse Reactions, Alerts Substance Criticality Severity Reaction Reaction Severity Status Other Environmental Allergy Active Immunizations Given and Recorded Vaccine Date Status Refusal Reason SARS-CoV-2(COVID-19)mRNA-LNP vac([id number]) 01/12/24 Recorded influenza virus vaccine, inactivated 01/04/24 [...] [place] RSV vaccine preF3, recombinant 01/13/23 Recorded CGGU-NcV-4pFJX 12y+ bivalent booster vax 01/13/23 Recorded pneumococcal 20-valent conjugate vaccine 09/27/21 Recorded SARS-CoV-2 mRNA (junwirp-vtfm-vtwmw) vax 09/27/21 Recorded tetanus/diphtheria/pertussis, acel(Tdap) 01/09/21 Recorded tetanus/diphtheria/pertussis, acel(Tdap) 09/29/16 Given tetanus/diphtheria/pertussis, acel(Tdap) 01/17/08 Recorded SARS-CoV-2 (COVID-19) mRNA BNT-162b2 vac 09/11/20 Recorded SARS-CoV-2 (COVID-19) mRNA BNT-162b2 vac 08/21/20 Recorded zoster vaccine, inactivated 01/28/20 Recorded pneumococcal 23-valent vaccine 06/18/19 Recorded pneumococcal 23-valent vaccine 06/03/17 Given Pneumococcal Vaccine (oldterm) 2 03/19/08 Given 1Result Comment: Lot and EXP [id number] 2Result Comment: Lot and Exp [id number] Medications Albuterol (Eqv-Ventolin HFA) 90 mcg/inh inhalation [...] Refills, Maintenance, 08/20/24 3:49:00 PM EDT, Tablet, [id number], Partial fill upon patient request if [...] Care Team Personnel Name: Jennifer Anderson Position: [facility] Onco RN Member Role: Primary Care Nurse Name: Kassidy Calles RN Position: [facility] RN Member Role: Primary Care Nurse Name: Holly Mohan RN Position: [facility] SN RN Member Role: Primary Care Nurse Name: Rupert Ray RN Position: S RN Member Role: Primary Care Nurse Name: Alverto Gardiner Position: [facility] PCO Associate Professional Member Role: PCP Address: [address] [place] [id number]- Telecom: Name: Janet Vazquez RN Position: [facility] Onco RN Member Role: Primary Care Nurse Name: Ana Randhawa RN Position: [facility] RN Member Role: Primary Care Nurse Name: Ann Casper RN Position: [facility] RN Member Role: Primary Care Nurse Name: Mamie Helm RN Position: [facility] Pipe Organ Installer Member Role: Primary Care Nurse Name: Charly Casanova RN Position: [facility] RN Member Role: Primary Care Nurse Care Team Related Persons Name: CHRISTINA GUERRA Insurance Providers Guarantor name: [facility] Information #: 1 Payer: [facility] Member Number: NA Policy Number: NA Group Number: NA
== END 2024-09-14 10:37 | disposition home or self-care (01) ==
PROVIDERS: PCP Physician Assistant; Visit Provider Hospitalist
DX: J44.1 Chronic obstructive pulmonary disease with (acute) exacerbation (principal); J47.0 Bronchiectasis with acute lower respiratory infection; R06.09 Other forms of dyspnea; Z01.811 Encounter for preprocedural respiratory examination
CPT/HCPCS: 99214; G2211

== ENCOUNTER → 2024-09-14 10:09 | Outpatient (BNVA) | payer OTHER, SELFPAY | PROVIDERS: PCP Physician Assistant; Visit Provider Hospitalist | DX: Z01.811 Encounter for preprocedural respiratory examination (principal); J44.1 Chronic obstructive pulmonary disease with (acute) exacerbation; J47.0 Bronchiectasis with acute lower respiratory infection; R06.09 Other forms of dyspnea; Z87.891 Personal history of nicotine dependence | CPT/HCPCS: 99212 ==

== ENCOUNTER 2025-03-18 09:46 | Outpatient (AMB) | payer OTHER, SELFPAY ==
[2025-03-18 09:52] VITALS: BP 110/68; PULSE 63; O2SAT 95; BMI 29.0
--- NOTE | 2025-03-18 09:52 | A.OFFVIS_ITS ---
Vital Signs 03/18/25 09:52 Height 5 ft 6 in Weight 179 lb 10.828 oz BMI 29.0 BP 110/68 Blood Pressure Location Lt brachial Position Sitting Pulse 63 Pulse Source Pulse Oximeter Pulse Oximetry (%) 95 Oxygen Delivery Method Room Air Intake Visit Reasons: copd Director Drug Safety Required: No Accompanied by: Self / Same As Patient Allergies No Known Allergies Allergy (Verified 03/18/25 09:55) HPI Comments Details: Patient is a 69 y/o woman with a history of known COPD in addition to pneumothorax status post lung resection of the right upper lobe area. She also had breast cancer of the right breast s/p xrt. She has been participating with pulmonary rehabilitation for some time. She did very well. Now that she has completed the course she started demonstrating increasing shortness of breath and cough. She has a croupy cough. Moderate severity. She is getting more short of breath. She has been having to use a nebulizer at times. She has been using the Spiriva Respimat with very good effect. However, her insurance Center letter that they were going to be covering and she is very concerned about this since she has failed multiple inhalers including all the powder inhalers October her throat. Will try sending Spiriva again since his so effective in addition to additional inhaler therapy. She did have an x-ray back in April 2018 demonstrating some postoperative changes lung volume and other changes. At this point she should really get a CT scan to better address her her symptoms and her abnormal chest x-ray. Today the patient is here for pulmonary follow-up visit. She continues to have a productive cough with wheezing. Moderate severity. She hasn't really felt any better from the last visit. She did have a CT scan of the chest which we personally reviewed demonstrating her postoperative changes in addition to her radiation changes from her right-sided breast cancer. . 09/19/2023 the patient is here for a pulmonary follow-up visit. The patient is doing fairly well although she does complaint of dyspnea on exertion. Moderate severity even with minimal activity. She has been struggling with her breathing. Unfortunately she still smoking at times primarily marijuana. Explained to her that with the lung condition she exposing herself to any smoke or any fumes or toxins that could be further hindering her lung capacity. The patient has been using her respiratory therapy with good effect in the azithromycin Imer Wednesday Sixto macrolide therapy has been very effective for her. She knows to get an EKG. In the meantime we did take it for 6 minute walk test. The patient did desaturate down to about 91% in her heart rate did increase over 120 beats per minute with the activity. She did walk about 300 ft. Explained to the patient that although she does have significant pulmonary disease she may have a cardiopulmonary component. Therefore I will order an EKG and the patient should also have a stress test. We will also request blood work at this time including a venous gas. 12/26/2023 the patient is here for a pulmonary follow-up visit. Overall she is doing well. Still has dyspnea on exertion. [id number] severity. But more stable. She is no longer using the inhaled tobramycin she does not feel significant congestion. She has not gotten a call either she states. At this point will hold off additional therapies especially she is doing well. She is tolerating the macrolide suppression therapy and we did look at an EKG which was stable. She will continue with the current respiratory therapy. Will plan to repeat her PFTs in 4-6 months and will follow-up after that. The patient may be a good candidate for pulmonary rehabilitation will discuss that further after her PFTs. 06/29/2024 the patient is here for pulmonary follow-up visit. She has not been feeling well for the last few weeks. She is concerned she has pneumonia. She has been expectorating dark sputum sometimes green sometimes yellow but sometimes dark. She states it does not look like blood. She also complains of worsening shortness of breath chest tightness. She has been on the azithromycin 3 times a week. Initially was working but nods not seem to be doing anything for her. She did undergo a CT scan of the chest dated did personally review back in 04/27/2024. No evidence of any airspace disease done. Although she does have some bronchiectasis and stable pulmonary nodules as well as postoperative changes. The patient does have significant wheezing rhonchi on exam. She will be started on Levaquin since she has a history of Pseudomonas. She had been on inhaled tobramycin before. Will treated with Levaquin and will also get a sputum culture. She continue using her nebulizers as prescribed. Will follow-up in 3 months and will change her PFT for 3 months from now. 09/14/2024 the patient is here for pulmonary follow-up visit. Overall she is doing okay. She has had a very eventful few months where she was initially diagnosed with significant diverticulitis. She was evaluated by surgery but did not require surgery which is reassuring. In addition to that he was found to have some abnormality with her uterus and she will need to follow-up with helpdesk administrator for that. In the meantime she does have a colonoscopy coming up. From a respiratory status has been doing okay although she has been having increasing wheezing. She also has chest tightness at times. [id number] severity. She does have her nebulized therapy but she has not been using it regularly. Will go ahead and start her on Breztri right now since she does not like the powder inhalers and does not tolerate them. She can use the Breztri than the rescue inhaler in between. Hopefully this will help improve her respiratory status so she can have her colonoscopy does coming up. She also has the inhaled tobramycin that she uses 28 days on 20 days off. She did have a CT scan of the abdomen done at [facility] which I personally reviewed lung windows did demonstrate some interstitial changes of the right base. Will continue to monitor her symptoms and response to therapy and she will follow-up in 4-6 months. If she has any issues prior to that she will call for an earlier assessment. 03/18/2025 the patient is here for pulmonary follow-up visit. Overall the patient has been doing okay. She has been having significant amount of stress after her had a small stroke and also her child was admitted to a psychiatric unit after suicidal at time. Therefore she is having significant amount of stress because of these conditions. Her breathing has also been affected by. She has been using the Breztri inhaler and has been affecting beneficial. She does have some chest tightness and wheezing still though. She is using her rescue inhaler. She will be a good candidate for Ohtuvayre. She is participating in the lung cancer screening program. Her CAT scan will be for April 2025. In addition to that the patient is no longer smoking cigarettes although she is still smoking pot at times. I did encourage her to refrain from that because any smoke will be detrimental to her health. The patient follow-up in 6 months if she has not issues prior to this she can always call for an earlier assessment and recommendations. [facility] Medical History (Updated 09/16/24 @ 22:47 by Charly Graff MD) History of cancer of right breast Personal history of nicotine dependence Dyspnea Bronchiectasis Hx of radiation therapy COPD (chronic obstructive pulmonary disease) Pneumonia Surgical History (Updated 05/24/24 @ 07:56 by Dominique Raphael PA-C) History of bronchoscopy History of lobectomy of lung Social History Patient Tobacco Use Status: Former Tobacco user Tobacco use type: Cigarette Years Smoked: 30 years Review of Systems Const Denies chills, Denies fatigue, Denies fever(s), Denies weight gain and Denies weight loss ENT Denies dizziness, Denies lip swelling and Denies tongue swelling Card Denies chest pain, Denies leg edema, Denies lightheadedness, Denies palpitat ions, Reports dyspnea on exertion, Denies orthopnea and Denies other Resp Reports cough, Reports dyspnea on exertion and Reports wheezing GI Denies hematochezia and Denies change in stool character Musc Denies abnormal gait, Denies muscle weakness, Denies numbness, Denies radiating pain into limb and Denies tingling Neuro Denies abnormal gait, Denies dizziness, Denies numbness and Denies tingling Psych Denies no additional complaints Endo Denies fatigue and Denies palpitations Nathan/Lymph Denies easy bleeding and Denies lymphadenopathy Aller/Immun Denies lip swelling, Denies tongue swelling and Reports wheezing Physical Exam Vital Signs: Last Vital Signs Pulse 63 03/18/25 09:52 BP 110/68 03/18/25 09:52 Pulse Ox 95 03/18/25 09:52 Oxygen Delivery Method Room Air 03/18/25 09:52 BMI result Body Mass Index 29.0 Const General: alert Neck Neck: Yes normal visual inspection, Yes full ROM and Yes no lymphadenopathy Chest Chest palpation & inspection: normal inspection of the chest Resp Effort & Inspection: prolonged expiratory phase Auscultation: wheezes and diminished lung sounds Cardio Rate: regular rate Rhythm: regular rhythm Heart sounds: S1 normal heart sound present and S2 normal heart sound present GI Palpation (GI): Soft to palpation and nontender Auscultation: normal bowel sounds Skin General skin exam: rashes and/or lesions noted Assessment & Plan Assessment & Plan (1) COPD (chronic obstructive pulmonary disease): Code(s): J44.9 - Chronic obstructive pulmonary disease, unspecified Category: Medical Qualifiers: COPD type: COPD with acute exacerbation Qualified Code(s): J44.1 - Chronic obstructive pulmonary disease with (acute) exacerbation (2) Bronchiectasis: Code(s): J47.9 - Bronchiectasis, uncomplicated Category: Medical Qualifiers: Bronchiectasis type: with acute lower respiratory infection Qualified Code(s): J47.0 - Bronchiectasis with acute lower respiratory infection (3) Dyspnea: Code(s): R06.00 - Dyspnea, unspecified Category: Medical Qualifiers: Dyspnea type: dyspnea on exertion Qualified Code(s): R06.09 - Other forms of dyspnea Plan continue Breztri BID Neb daily with CPT with percussion vest off Dev BID 28 days on 28 days off, consider restarting if +pseudomonas again start Ohtuvayre BID CT chest through LDCT program. F/U 4-6 months Medications: Refilled sypapwunpb-otecpkwq-btnddwawzc 160-9-4.8 mcg/actuation (Breztri Aerosphere) 2 inhalations inhalation BID 10.7 grams 11RF 30 days albuterol sulfate 90 mcg/actuation (Ventolin HFA) 2 puffs PO Q6H PRN 18 ea 11RF shortness of breath or wheezing Coding Level of Care Code Est Pt Level 4 (00772) Complex EM visit Add On G2211 Diagnoses Chronic obstructive pulmonary disease with acute exacerbation J44.1 COPD type: COPD with acute exacerbation Bronchiectasis with acute lower respiratory infection J47.0 Bronchiectasis type: with acute lower respiratory infection Dyspnea on exertion R06.09 Dyspnea type: dyspnea on exertion Time Spent (min) 16
--- OUTSIDE RECORDS SUMMARY | 2025-03-18 11:12 | XMS_ITS | Clinical Summary ---
Author Organization [facility] Address [address] [place] [address] Care Team Providers Care Motor Vehicle Light Assembler Name Role Phone Dottie Louie Primary Care Provider [phone] Surgical History Surgery Date Site/Laterality Comments COLONOSCOPY 10/2009 PROCEDURE: [facility] COLONOSCOPY STOMA DX INCLUDING COLLJ SPEC SPX OTHER SURGICAL HISTORY 2007 PROCEDURE: PARTIAL LUNG REMOVAL W/WEDGE RESECT OTHER SURGICAL HISTORY 1981 PROCEDURE: [facility] LIG/TRNSXJ FLP TUBE ABDL/VAG APPR UNI/BI ANKLE SURGERY 2011 PROCEDURE: HISTORICAL ANKLE SURGERY; COMMENT: Ankle fracture s/p ORIF ANKLE SURGERY 2013 PROCEDURE: HISTORICAL ANKLE SURGERY; COMMENT: removal of hardware Medical History Medical History Date Comments Depressive disorder, not els ewhere classified 08/05/2005 DX:Depressive disorder, not elsewhere classified Anxiety state, unspecified 08/05/2005 DX:An xiety state, unspecified COPD (chronic obstructive pu lmonary disease) ([facility] V24, [facility] V28) 01/03/2008 DX:COPD (chronic o bstructive pulmonary disease) ([facility]) Family History Medical History Relation [...] (2 - Td or Tdap) 01/16/2018 01/17/2008 Depression Screening 05/09/2024 COVID-19 Vaccine (1 - season) 2025 Influenza Vaccine (#1) 2025 3, 02/02/2012, 01/21/2011, Additional history exists RSV [...] age to complete this topic Care Teams Motor Vehicle Light Assembler Relationship Specialty Start Date End Date Dottie Louie PA [address] [place] [address] PCP - General Internal Medicine 06/22/17
== END 2025-03-18 10:16 | disposition home or self-care (01) ==
LOC: HO.HPS 09:47
PROVIDERS: PCP Physician Assistant; Visit Provider Hospitalist
DX: J44.1 Chronic obstructive pulmonary disease with (acute) exacerbation (principal); J47.0 Bronchiectasis with acute lower respiratory infection; R06.09 Other forms of dyspnea
CPT/HCPCS: 99214; G2211

== ENCOUNTER → 2025-03-18 09:46 | Outpatient (BNVA) | payer OTHER, SELFPAY | PROVIDERS: PCP Physician Assistant; Visit Provider Hospitalist | DX: J44.1 Chronic obstructive pulmonary disease with (acute) exacerbation (principal); J47.0 Bronchiectasis with acute lower respiratory infection; R06.09 Other forms of dyspnea | CPT/HCPCS: 99212 ==